=== PATIENT | female | born 1990 | race Caucasian/White ===

== ENCOUNTER 2019-07-21 22:21 | Emergency (ER) | payer MEDICAID, SELFPAY ==
[2019-07-21 22:22] VITALS: BP 147/74; PULSE 74; RESP 18; TEMP 36.4; O2SAT 97; BMI 29.1
--- NOTE | 2019-07-21 22:43 | ED.VISSUMM ---
- ER Visit Summary Date of Service: 07/21/19 Chief Complaint: Acute on chronic right ankle pain. History of Present Illness: The patient is a 28 F no significant past medical history. 1 year ago patient injured her right ankle. Was seen in urgent care and x-rays done at that time that were reportedly negative. For the last year she has had intermittent pain and intermittent swelling to her right ankle. She states that she is rolled it several times. Has never had any physical therapy. No ankle surgery. No fever, redness or calf pain. No walk on it. Just does intermittently has some swelling and some discomfort. Physical Examination: Well-appearing 28-year-old female no acute distress vital signs stable. She is afebrile. HEENT exam unremarkable. Lungs are clear. Heart regular rhythm no murmur. Abdomen soft nontender. Patient is moving all 4 extremities. Neurovascular intact. The right hip, knee and ankle are neurovascular intact. There is really minimal swelling to the right lateral ankle. She has full flexion-extension of the right ankle. Achilles tendon is intact. Normal DP pulse. The foot itself is completely nontender. No bony deformities. No redness. Able to wiggle her toes. Normal cap refill. Otherwise exam unremarkable. Test Results: Discussed with patient x-rays deferred at this time. Emergency Department Course and Treatment: I splinted the patient she had no new acute injury. Her best treatment option be follow-up with local podiatry and if necessary they get an MRI looking for tendon, ligament or cartilaginous injury that will show up on plain films. She is comfortable that plan. She will continue intermittent ice and elevation and anti-inflammatories. Treatment Plan: Ice, anti-inflammatories and rest. Follow-up with local director public policy Dr. Randy young. Disposition: Discharge Impression: Acute intermittent right ankle pain and swelling secondary to abnormally chronic ambulate intra-articular injury This note was generated with [employer] dictation software. It may contain incorrect words, spelling, and punctuation that were not noted in review of the chart prior to signing ED Disposition - Plan for ED Patient: Referrals: NOT,DEFINED [Primary Care Provider] -
--- NOTE | 2019-07-21 22:46 | DCINST.ED_ITS ---
ED Disposition - Plan for ED Patient: Disposition: Home or Assisted Living Referrals: Randy Louis DPM [STAFF PHYSICIAN] - 1-2 Weeks Additional Instructions: Ice and elevate your right ankle. Motrin for pain and swelling. Call and follow-up with a local hotel recreational facilities manager (foot and ankle specialist). They can further evaluate your ankle. Most likely this is not an acute fracture but a long-term ligament or tendon injury to your ankle when you injured it about a year ago. They may need to do advanced imaging such as an MRI to diagnose that.
[2019-07-21 22:53] VITALS: BP 138/74; PULSE 76; RESP 16; O2SAT 98
== END 2019-07-21 22:59 | disposition home or self-care (01) ==
LOC: ED 22:58
PROVIDERS: Emergency Provider Emergency Medicine
DX: M25.571 Pain in right ankle and joints of right foot (principal); G89.29 Other chronic pain; M79.89 Other specified soft tissue disorders
CPT/HCPCS: 99282

== ENCOUNTER → 2019-09-19 16:05 | Outpatient (CLI) | payer MEDICAID, SELFPAY ==
--- NOTE | 2019-09-19 16:20 | MRI_ITS ---
STUDY: MRI RIGHT ANKLE WITHOUT CONTRAST REASON FOR EXAM: Female, 28 years old. rt ankle ptt tear, lateral tendon tear, twisted ankle several times TECHNIQUE: Standardized fat and water weighted pulse sequences were obtained in all 3 orthogonal planes. COMPARISON: None. FINDINGS: Normal subcutis adipose space. Normal posterior tibialis tendon. Normal flexor digitorum longus tendon. Normal flexor hallucis longus tendon. Normal peroneus longus and brevis tendons. Normal tibialis anterior tendon. Normal extensor hallucis longus tendon. Normal extensor digitorum longus tendons. Normal Achilles tendon and teno-osseous insertion. No marrow edema or osteochondral defect. No visualized fracture. A small ankle joint effusion is present. There is mild thickening and intrinsic signal of the medial band of plantar fascia at the plantar insertion site on the calcaneus, without a tear, consistent with plantar fascial degeneration. Normal plantar calcaneal tubercles. A small plantar calcaneal spur is present directly above the degenerated plantar fascia. No demonstrated bursitis. Normal intrinsic muscles of the rearfoot. Normal distal tibiofibular syndesmotic ligamentous complex. Normal lateral ligamentous complex. Normal subtalar ligaments and sinus tarsi. Normal deltoid ligamentous complexes. Normal plantar calcaneonavicular (spring) ligament. Normal tibiotalar articulation. Normal talar dome. Normal subtalar articulations. Normal talonavicular articulation. Normal calcaneocuboid articulation. Normal navicular-cuneiform articulations. MRI/Lower Ext Joint Only (Routine) IMPRESSION: 1. Mild degeneration of the medial band of plantar fascia with a small overlying plantar calcaneal spur. 2. No osteochondral defect or marrow edema. 3. Small ankle joint effusion. Electronically Signed: Ramsey Starr MD at 18:39 EDT , Service support ,
== END ==
PROVIDERS: Referring Provider Podiatrist; Visit Provider Podiatrist
DX: S86.311A Strain of muscle(s) and tendon(s) of peroneal muscle group at lower leg level, right leg, initial encounter (principal); X50.1XXA Overexertion from prolonged static or awkward postures, initial encounter
CPT/HCPCS: 73721

== ENCOUNTER 2019-10-24 16:00 | Outpatient (RCR) | payer MEDICAID, SELFPAY ==
--- NOTE | 2019-10-09 17:02 | HP.PTEVAL ---
Patient's Visit Information ISHAN HORN is a 29 year old F referred to Physical Therapy by Dr. Randy Louis DPM with a diagnosis of R lateral ankle sprain. Date of Evaluation: 10/09/19 Physical Therapist: Jefferson Fernando, PT, ATC - Visit Plan Frequency: 2-3x /Week Duration: 4-6 Weeks Plan: R ankle stretching and strengthening, balance and proprio, PROM/Mobs, bike, and HEP - Subjective Pt reports she has a long Hx of R ankle sprains. Pt reports she had xrays and and MRI performed a couple weeks ago which revealed a possible tear in some on her tendons. Pt reports she was given a couple of options including PT first and if that isn't helpful, surgery. Pt reports prolonged ambulation results in a dull ache in R ankle. Pt reports she uses ice when she has pain. Pt reports occasional tingling and numbness in R ankle when painful. 1/10 pain at rest, 7/10 pain at worst (when she walks a lot) - Pain R ankle Pain Intensity (Out of 10): 1 Pain Intensity Range: 7 - Objective Neuro: B LE sensation is WNL to light touch. B patellar reflex= 2/3. Girth at joint line: L ankle 48 cm, R ankle 49.5 cm. Palpation: Mild swelling noteed. Pain throughout entire lateral ankle. No obvious deformity present at this time. ROM: L ankle DF= 15, PF= 65 degrees. R ankle DF= 2, PF= 55. MMT: R ankle grossly 4-/5 throughout while L ankle 5/5 throughout - Goals Goal 1:: Decrease R ankle pain x 50% to aid with sleep Goal Time Frame: 4-6 Weeks Goal 2:: Increase R ankle strength x 1 grade to aid with increasing yuliana for ambulation Goal Time Frame: 4-6 Weeks Goal 3:: Increase R ankle DF ROM x 10 degrees to aid with restoring a normalized gait pattern Goal Time Frame: 4-6 Weeks Goal 4:: I with HEP Goal Time Frame: 4-6 Weeks - Rehabilitation Potential Physical Therapy Diagnosis: R ankle pain, weakness, and limited ROM secondary to R lateral ankle sprain Rehabilitation Potential: Good - Anticipated Interventions Patient/Client Instruction: Educate patient on: Condition, Plan of Care For the Purpose of:: To improve self management Therapeutic Exercise to Include: Strength training, Balance training, Flexibilty training, Gait and locomotor training, Passive ROM, Active ROM, Dynamic Lumbar Stabilization For the Purpose of:: To decrease pain, To increase ROM, To improve muscle performance and motor function Cryotherapy (ice pack, ice massage): Yes For the Purpose of:: To decrease pain Thank you for the opportunity to evaluate your patient. For Medicare and Medicare HMO plans, please review the plan of care and approve it. It will need to be FAXED BACK to us at [phone] for Medicare purposes. For Medicare only, by signing this I certify the plan of care. Please let me know if there are questions or concerns regarding this plan of care. Physician Signature: Date:
--- NOTE | 2019-12-17 14:12 | HP.PT.NRP ---
ISHAN HORN was seen in my office for initial evaluation on 10/09/19. The following Plan of Care was established for this patient: Initial Frequency: 2-3x /Week Initial Duration: 4-6 Weeks Patient/Client Instruction: Educate patient on: Condition, Plan of Care For the Purpose of:: To improve self management Therapeutic Exercise to Include: Strength training, Balance training, Flexibilty training, Gait and locomotor training, Passive ROM, Active ROM, Dynamic Lumbar Stabilization For the Purpose of:: To decrease pain, To increase ROM, To improve muscle performance and motor function Cryotherapy (ice pack, ice massage): Yes For the Purpose of:: To decrease pain This patient was last seen in our office . Pertinent comments regarding their Physical therapy will appear below: Pt was treated for R ankle pain for 5 PT visits through the date of 10/24/19. Pt has not returned through todays date and is discontinued at this time. At this point I will be discontinuing this patient from physical therapy. I would be happy to see this patient again in the future if found appropriate by the physician. Thank you! Jefferson Fernando, PT, ATC
== END 2019-10-24 19:00 | disposition home or self-care (01) ==
LOC: PT 16:00
PROVIDERS: Referring Provider Podiatrist; Visit Provider Podiatrist
DX: M25.371 Other instability, right ankle (principal); M76.71 Peroneal tendinitis, right leg
CPT/HCPCS: 97110; 97140; 97161

== ENCOUNTER 2020-10-03 08:25 | Inpatient (IN) | payer MEDICAID, SELFPAY ==
[2020-10-03] VITALS (46 sets, daily range): BP systolic 109–140; BP diastolic 61–80; PULSE 73–104; RESP 16; TEMP 35.8–36.6; O2SAT 96–99; BMI 31.2
--- NOTE | 2020-10-03 08:59 | PCM.HP.OB ---
HPI - General General Date of Admission: 10/03/20 HPI Narrative ISHAN HORN, is a 30 F who presents for induction of labor. Maternal Data Information Final SUSHANT: 09/30/20 Gestational age: 40&3 PFSH [facility] Medical History (Updated 10/03/20 @ 12:[address] Cari Milton MD) Anxiety History of prior with IUGR Seasonal allergic rhinitis Home Medications famotidine [Pepcid] 20 mg PO BID 10/03/20 [History Last Taken 10/02/20 14:00 20 mg] fluticasone propionate [Flonase] 2 spray INTRANASAL DAILY 10/03/20 [History Last Taken 10/02/20 12:00 2 puffs] loratadine [Claritin] 10 mg PO DAILY 10/03/20 [History Last Taken 10/02/20 12:00 10 mg] [id number] [] 1 tab PO DAILY 10/03/20 [History Last Taken 10/01/20 12:00] Allergy/AdvReac Type Severity Reaction Status Date / Time Penicillins Allergy Hives Verified 10/03/20 08:44 pollen extracts Allergy Itching Verified 10/03/20 08:44 Surgical History (Updated 10/03/20 @ 09:35 by Allen Peterson) History of surgery Social History Smoking Status: Light Smoker (<10/day) History Elective abortions Hx Para 2 Spontaneous abortions Hx # Term Pregnancies Ectopic pregnancies Hx # Pregnancies Multiple births # of living children NST FHR Rate Baby A Baseline: 135 Variability:: Moderate Accelerations:: 15 x 15 Decelerations:: None Uterine Activity:: Q2-3 minutes Vital Signs Vital Signs Vital Signs: 10/03/20 08:44 Pulse Rate 98 Blood Pressure 130/72 H BP Systolic 130 BP Diastolic 72 Weight Weight: 187 lb 9.814 oz Body Mass Index (BMI) 31.2 Labs Labs Labs: Blood Type A POSITIVE Antibody Screen NEGATIVE Hct 37.7 % (37-47) Hgb 12.4 g/dL (12.0-15.0) Group B Strep DNA Negative (Negative-) Rhogam given: No See [facility] H&P Assessment & Plan (1) Elective induction of labor planned: COMMENT: 40&3 PLAN: Admit to L&D Induction - discussed R/B/A and patient wishes to proceed. Start pitocin and plan for AROM. COVID negative GBS negative EFW - less than 4500g, patient with adequate pelvis Pain - epidural as desired Routine care 2cm on admission and now she is 4/80/-2 & s/p AROM for clear amniotic fluid
[2020-10-03] MEDS: Lactated Ringers 1,000 ML 50 ML IV (09:00)
[2020-10-03 09:13] LABS: Absolute Lymphocyte Count 1.59 X10^3/uL (0.83-4.51); Absolute Neutrophil Count 7.3 X10^3/uL (2.0-7.7); Basophil# 0.02 X10^3/uL; Basophil% 0.2 % (0-1); Eosinophil# 0.16 X10^3/uL; Eosinophils% 1.7 % (0-5); Hematocrit 37.7 % (37-47); Hemoglobin 12.4 g/dL (12.0-15.0); Lymphocyte # 1.59 X10^3/ul (0.83-4.51); Lymphocyte % 16.5 % (19-41); Mean Corp Hgb Conc 32.9 g/dL (32-36); Mean Corpuscular Hgb 29.2 pg (27.0-32.0); Mean Corpuscular Volume 88.7 fL (81-99); Mean Platelet Vol. 11.3 fl (6.2-12.0); Monocyte# 0.52 X10^3/uL; Monocyte% 5.4 % (0-10); NRBC Flagged by Analyzer 0 % (0-5); Neutrophil # 7.31 X10^3/uL (2.7-7.7); Neutrophil % 75.9 % (47-70); Platelet Count 258 K/mm3 (150-450); RBC Distribution Width CV 12.5 % (11.6-14.6); RBC Distribution Width SD 40.4 fl (35.1-43.9); Red Blood Count 4.25 M/mm3 (4.2-5.4); White Blood Count 9.6 K/mm3 (4.4-11.0)
[2020-10-03] MEDS: Oxytocin 30 units/NS 500 ml 30 UNITS/500 ML IV.SOLN IV (09:16)
[2020-10-03] MEDS: Lactated Ringers 500 ML 999 ML IV (12:19)
[2020-10-03] MEDS: fentaNYL-bupivacaine (epidural) 100 ML BAG EPIDURAL (13:12)
[2020-10-03] MEDS: Oxytocin 30 units/NS 500 ml 30 UNITS/500 ML IV.SOLN 334 UNITS IV (15:12)
--- NOTE | 2020-10-03 15:54 | EX.PCM.OBRPT ---
Assessment & Plan (1) Elective induction of labor planned: COMMENT: 40&3 Maternal Data Information Final SUSHANT: 09/30/20 Gestational age: 40&3 Vaginal Delivery Maternal Presentation Maternal Presentation: Elective Induction Type of Induction: Pitocin Operative Information Date of Procedure: 10/03/20 Pre-Operative Diagnosis: Elective induction Post-Operative Diagnosis: Same Surgery / Procedure Performed: Spontaneous Vaginal Delivery Type of Anesthesia: Epidural Estimated Blood Loss: 300ml Findings Description of Procedure: Patient prepped & draped when C/C/+1. She pushed well to deliver the head. Tight nuchal cord clamped (x2) and cut. head gently guided to allow delivery of anterior and posterior shoulders. No excess traction placed on head. Body delivered easily. Placenta delivered with gentle traction and good uterine tone obtained. Presentation: VALARIE Amniotic Membrane Rupture Type: Artificial Amniotic Fluid Description: Clear Placental Delivery Description: Expressed Placenta Disposition: [facility] Specimen(s) Removed: Placenta Cord Vessel Description: 3 Vessels Cord Entanglement: Around neck x 1, tight Nuchal Cord Compression: With compression A Gender: Female (1 minute): 8 (5 minute): 9 Delayed Cord Clamping: No Post Vaginal Delivery Medications Given After Delivery: IV Pitocin Episiotomy Description: None Laceration: 1st degree (midline vaginal - repaired with 3-0 vicryl) Complication Complications: None
[2020-10-03] MEDS: 0.9% Saline Lock 10 ML Syringe IV (17:35)
[2020-10-03] MEDS: Ibuprofen 600 MG Tablet PO (18:01)
[2020-10-04 03:30] VITALS: BP 111/62; PULSE 86; RESP 16; TEMP 36.3; O2SAT 95
[2020-10-04 07:45] VITALS: BP 129/81; PULSE 88; RESP 16; TEMP 36.5; O2SAT 97
--- NOTE | 2020-10-04 09:48 | PCM.PN.OB ---
Subjective Subjective Denies complaints Objective Data Objective Data Vital Signs: Vital Signs Temp Pulse Resp BP Pulse Ox 97.7 F L 88 16 129/81 H 97 10/04/20 07:45 10/04/20 07:45 10/04/20 07:45 10/04/20 07:45 10/04/20 07:45 Oxygen Delivery Method Room Air Weight: 187 lb 9.814 oz Body Mass Index (BMI) 31.2 Intake & Output: Intake and Output for Last 24 Hours 10/02/20 10/03/20 10/04/20 23:59 23:59 23:59 Intake Total 1987.81 / 81 Output Total 1100 / 1100 Balance 888.81 / 888.81 Lab / Micro Data Result Diagrams: 10/03/20 09:00 Labs: Laboratory Results - last 24 hr 10/03/20 09:00: Blood Type A POSITIVE, Antibody Screen NEGATIVE Physical Exam Const alert, oriented x3 and no apparent distress HEENT normocephalic GI soft to palpation, non-tender and non-distended GI Narrative: fundus firm, mid & below umbilicus Extremity normal to inspection and no calf tenderness Assessment & Plan (1) Elective induction of labor planned: COMMENT: PPD#1 PLAN: D/c home per patient request Routine care
--- NOTE | 2020-10-04 10:14 | PCM.DC ---
Discharge Instructions Diet Discharge Diet: No restrictions Activity Discharge Activity: May Shower May resume sexual activity in: 6 weeks Weight Bearing Status: Weight bearing as tolerated Dressing / Incision Call your doctor if you observe: Fever of 101 or Higher, Coldness, Increased Pain, Change in Color, Inability to urinate, Inability to have a bowel movement, Using more than 1 pad per hour, Shortness of breath, Dizziness, Fainting spells, Chest pain, Increased palpitations (irregular heartbeat), Calf discomfort and Uncontrolled pain Remove Dressing in: 1 week Cleanse incision/area with: Soap & Water Follow Up Care Please Follow Up With: Cari Milton MD When: Follow up in 2 and 6 weeks for visits. Test Results: Test results from this visit will be discussed in further detail at your follow-up appointment, if applicable. Discharge Plan Admission Admit Date/Time: 10/03/20 08:25 Primary Reason for Your Visit: Vaginal delivery Attending Provider: Cari Milton Primary Care Provider: Care Physician,Afia Primary Discharge Orders/Prescriptions Prescriptions: No Action famotidine [Pepcid] 20 mg Tablet 20 mg PO BID RF: 0 1 mg Tablet 1 tab PO DAILY RF: 0 fluticasone propionate [Flonase] 50 mcg/actuation [place],Suspension 2 spray INTRANASAL DAILY RF: 0 loratadine [Claritin] 10 mg Tablet 10 mg PO DAILY RF: 0 Referrals / Follow Up: Care Physician,Afia Primary [Primary Care Provider] - Disposition Disposition (needs filled in before D/C Order can be placed): Home, Self Care
[2020-10-04] MEDS: Acetaminophen 500 MG Tablet 1000 MG PO (12:46)
[2020-10-04 12:48] VITALS: BP 128/83; PULSE 77; RESP 16; TEMP 36.6; O2SAT 98
--- NOTE | 2020-10-04 16:39 | NURSING ---
individual discharge instructions for care printed and given to patient as instructions would not print from discharge packet
== END 2020-10-04 16:30 | disposition home or self-care (01) | DRG 560 ==
PROVIDERS: Admitting Provider Obstetrics & Gynecology; Visit Provider Obstetrics & Gynecology
DX: O75.89 Other specified complications of labor and delivery (principal); O69.1XX0 Labor and delivery complicated by cord around neck, with compression, not applicable or unspecified; O99.334 Smoking (tobacco) complicating childbirth; F17.210 Nicotine dependence, cigarettes, uncomplicated; Z37.0 Single live birth; Z88.0 Allergy status to penicillin; Z3A.40 40 weeks gestation of pregnancy
CPT/HCPCS: 59025; 59050; 85025; 86850; 86900; 86901; 99218; J7120; A4216; G0378

== ENCOUNTER 2021-01-08 07:45 | Day surgery (SDC) | payer MEDICAID, SELFPAY ==
--- NOTE | 2021-01-06 13:47 | PCM.HP.BLA ---
History and Physical Date of Admission: 01/08/21 HPI: The patient is a 30 year old female presenting for?discussion regarding tubal ligation. ?Patient has 3 children does not desire future childbearing. ?Patient understands that this procedure is permanent and not reversible. ?Patient understands that if she desires?future fertility she would need to see reproductive specialist. ?Patient wishes to proceed. ? ? Original date of surgery was canceled due to +COVID status. ? ? ? Pre-operative visit. She is scheduled for?laparoscopic bilateral salpingectomy, for?desires sterilization on?01/08/21. ??Procedure discussed along with risks, benefits and complications. ?Other alternatives discussed for management. Consent form signed??Yes.? PAST MEDICAL HISTORY ? ? ? PAST MEDICAL HISTORY Diagnosis Date ? Antepartum anemia 06/15/2012 ? Anxiety disorder ? ? At risk for sexually transmitted disease due to partner with HIV ? ? Attention deficit disorder without mention of hyperactivity 11/07/2000 ? H/O seasonal allergies ? ? inverted nipple ? ? left ? Varicella without mention of complication 05/11/1993 ? PAST SURGICAL HISTORY ? PAST SURGICAL HISTORY Procedure Laterality Date ? MYRINGOTOMY ? ? ? REMOVAL ADENOIDS,PRIMARY,<12 Y/O ? CURRENT MEDICATIONS ? Current Outpatient Medications Medication Sig Dispense Refill ? fexofenadine (KYREE ALLERGY) 180 mg tablet Take 1 tablet by mouth once daily. ? ? ? fluticasone (FLONASE ALLERGY RELIEF) 50 mcg/actuation nasal spray Use 1 Dickens in each nostril once daily. ? ? ? acetaminophen (TYLENOL) 325 mg tablet Take 650 mg by mouth every 6 hours as needed. ? ? ? No current facility-administered medications for this visit. ? ? ALLERGIES:?Animal Dander, Environmental [Other], and Penicillins ? PERSONAL HISTORY:? SOCIAL HISTORY Social History ? Tobacco Use ? Smoking status: Former Smoker ? ? Types: Cigarettes ? Smokeless tobacco: Never Used ? Tobacco comment: Social smoker-1-2 times a month Vaping Use ? Vaping Use: Former Substance Use Topics ? Alcohol use: Not Currently ? ? Alcohol/week: 5.0 standard drinks ? ? Types: 5 Glasses of Wine (5oz) per week ? Drug use: Never ?? ? FAMILY HISTORY:? FAMILY HISTORY FAMILY HISTORY Problem Relation Age of Onset ? Diabetes Mother ? ? Diabetes Father ? ? No Known Problems Sister ? ? ADD/ADHD Brother ? ? No Known Problems Brother ? ? other (hanging accident) Brother ? ? No Known Problems Maternal Grandmother ? ? No Known Problems Maternal Grandfather ? ? No Known Problems Paternal Grandmother ? ? No Known Problems Paternal Grandfather ? ? No Known Problems Son ? ? Heart Other ?maternal &?paternal side ? other (hypoglycemia [Other]) Other ?maternal &?paternal side ? Cancer Other ?maternal &?paternal side ? Diabetes Other ?maternal &?paternal side ? other (glaucom [Other]) Other ?maternal &?paternal side ? other (depression [Other]) Other ?maternal &?paternal side ? No Known Problems Daughter ? ? ? REVIEW OF SYMPTOMS: negative except as noted above ? PHYSICAL EXAMINATION: ? VITALS:?BP 110/64, weight 173lb BMI 28.79 ? GENERAL:??The patient is well nourished, well hydrated in no acute distress. ?, The patient is oriented to time, place, and person. NECK:?full range of motion LUNGS: clear bilaterally to auscultation HEART: Regular rate and rhythm ? IMPRESSION:?Desires sterilization ? PLAN:???Laparoscopic bilateral salpingectomy ? Pt has been counseled on risks/benefits and alternatives of surgery including but not limited to anesthesia, bleeding, infection, injury to pelvic structures including bowel, bladder, ureters and vessels. ?Pt wishes to proceed with surgery at this time. ? covid testing reviewed Pre and post op instructions reviewed Title 19 previously signed in 09/2020 ? ? I have reviewed and updated past medical and surgical history, medications and allergies? Etta Manley MD ? Electronically signed by Etta Manley MD at
[2021-01-08 08:17] LABS: Internal QC Validated? YES +Cl - CLEAR BKGD
[2021-01-08 08:21] LABS: Pregnancy, Urine Negative Negative
[2021-01-08] MEDS: Lactated Ringers 1,000 ML 15 ML IV ×2 (08:30→10:45)
[2021-01-08 08:48] VITALS: BP 118/67; PULSE 79; RESP 16; TEMP 36.6; O2SAT 99; BMI 28.2
--- NOTE | 2021-01-08 09:32 | OP.PCM_ITS ---
Problems Associated Problem List Diagnoses (1) Request for sterilization: Report of Operation Date of Procedure: 01/08/21 Pre-Operative Diagnosis: desires sterilization Post-Operative Diagnosis: same Surgery/Procedure Performed:: laparoscopic bilaterally salpingectomy Description of Surgical Findings:: normal tubes and ovaries bilaterally, grossly normal pelvic anatomy Surgeon: Etta Cohen Type of Anesthesia: General and Local Special Medications: 0.5% marcaine Specimen's removed: bilateral fallopian tubes Drains: none Estimated Blood Loss (mL): <5cc Fluids Replaced: 400 Description of Procedure: After informed consent was obtained patient was taken to the operating room she was placed in supine position she was given anesthesia. She was then placed in the [facility] stirrups and she was prepped and draped in normal sterile fashion. Bladder was drained prior to the start of procedure. At this time attention was turned to the vaginal portion where weighted speculum placed at posterior fornix vagina single-tooth tenaculum was used to gently grasp the internal the cervix. uterus was gently sounded to approximately 8 cm. Uterine manipulator was placed without difficulty. Legs then placed in parallel with the abdomen the tenaculum and the weighted speculum were removed. 2 towel clamps were placed at level of umbilicus. Marcaine was injected infraumbilical and a small incision was made. The 5 mm trocar was placed under direct visualization. CO2 gas was used to insufflate the intra- abdominal cavity. Upon inspection no gross abnormalities appreciated- the uterus tubes and ovaries appeared to be normal. At this time then the LLQ and RLQ ports were placed First Marcaine was injected and small incision was made a knife and the 5 mm trocars were placed. At this time then tubes were traced back to the fimbriated ends. Enseal was used to coagulate and ligate along mesosalpinx` bilaterally until tubes removed completely. Good hemostasis was appreciated. At this time procedure was deemed complete successful. The gas was desufflated on from the intra-abdominal cavity. The trochars were removed. Skin was closed using 4-0 Monocryl in a subcutaneous fashion. Dermabond glue was placed. Instrument lap and needle counts were correct ?2. The uterine manipulator was removed. Vaginal sweep was performed it was negative. There were no complications anticipated normal postoperative course for this patient. Procedure Start Time: 09:52 Procedure Stop Time: 10:21 Complications none Admit VTE Documentation VTE Present on Admission: Yes VTE Mechan Device Prophylaxis: SCD's VTE Pharm Prophylaxis ordered?: No Reason prophylaxis not ordered:: Procedure Not Indicated
--- NOTE | 2021-01-08 09:50 | FALS_PTH ---
PATIENT: ISHAN HORN LOC: [facility] [place] U#:[id number] AGE/SX: 30/F ROOM: RE01/08/[address]: Dr. Etta Cohen, MDDOB: 1990 BED: DIS: 01/08/2021 SPEC #: [id number] RECD: 01/08/21 12:57 STATUS: JAYNE JENNIFER #: [id number] ELIZABETH: 01/08/21 09:[address]: Etta Cohen DEPT: SURGICAL PATHOLOGY RECD BY: Arabella Chin ENTERED: 01/08/21 13:32 SP TYPE: FALL TUBES OTHR DR: No Primary Care Phys Tissues: Fallopian tube Procedures: Surgery Specimen Level II HEADER OPERATION: Laparoscopic salpingectomy PRE-OP DIAGNOSIS: Sterilization TISSUE SUBMITTED: Bilateral fallopian tubes MICROSCOPIC DIAGNOSIS Bilateral fallopian tubes, salpingectomy: Bilateral fallopian tubes, no pathologic diagnosis. SJ:donna 01/09/2021 MICROSCOPIC DESCRIPTION Slides are reviewed. GROSS DESCRIPTION Received in fixative is one container labeled with the patient's name and designated bilateral fallopian tubes. The specimen consists of bilateral fallopian tubes including fimbrial ends. One of the fallopian tubes measure 6 cm in length and up to 1 cm in diameter. The second fallopian tube is received in two pieces. The proximal portion measures 4.5 cm in length and 0.7 cm in diameter and the distal portion including fimbrial end measures 2 x 1 x 1 cm. The fallopian tubes are not identified as right or left. Sections reveal unremarkable cut surfaces. [employer] sections are submitted in two cassettes as follows: 1 ? intact fallopian tube, 2 - fallopian tube received in two pieces. / GERMAIN:donna 01/08/21 TC:4 CPT: 07966 x2
[2021-01-08] MEDS: Bupivacaine Mpf 0.5% 30 ML VIAL (09:56)
--- NOTE | 2021-01-08 10:23 | DCINST_ITS ---
Discharge Instructions Procedure Other Diet Discharge Diet: No restrictions Activity May resume sexual activity in: 2 weeks Lifting Restrictions: 20-25 lbs Dressing / Incision Call your doctor if your incision/area has: Continuous Slow Oozing, Sudden Increased Bleeding, Increased Pain/ Swelling, Increased Redness, Foul Smelling Discharge and Swelling at the incision site Call your doctor if you observe: Fever of 101 or Higher, Inability to urinate, Inability to have a bowel movement, Using more than 1 pad per hour and Uncontrolled pain Additional Dressing/Incision Instructions:: You have skin glue over your incision sites, do not pick off. You may shower and let the soap and water run over the incision sites and dab dry. Follow Up Care Please Follow Up With: Etta Cohen MD When: 1-2 weeks post OP if you need an appointment please call [phone] Test Results: Test results from this visit will be discussed in further detail at your follow-up appointment, if applicable. Discharge Plan Admission Attending Provider: Etta Cohen Primary Care Provider: Care Physician,No Primary Discharge Orders/Prescriptions Prescriptions: No Action famotidine [Pepcid] 20 mg Tablet 20 mg PO BID RF: 0 fluticasone propionate [Flonase] 50 mcg/actuation [place],Suspension 2 spray INTRANASAL DAILY RF: 0 loratadine [Claritin] 10 mg Tablet 10 mg PO DAILY RF: 0 Referrals / Follow Up: Care Physician,No Primary [Primary Care Provider] - Disposition Disposition (needs filled in before D/C Order can be placed): Home, Self Care
[2021-01-08 10:35] VITALS: BP 114/72; BP 118/67; PULSE 85; RESP 16; TEMP 36.3; O2SAT 100
[2021-01-08 10:45] VITALS: BP 113/74; BP 118/67; PULSE 68; RESP 16; O2SAT 97
[2021-01-08 11:00] VITALS: BP 100/60; BP 118/67; PULSE 67; RESP 16; O2SAT 100
[2021-01-08 11:15] VITALS: BP 106/58; BP 118/67; PULSE 61; RESP 16; TEMP 35.9; O2SAT 100
[2021-01-08] MEDS: HYDROcodone Bitartrate/Apap 5/325 Tablet PO (11:47)
[2021-01-08 12:31] VITALS: BP 106/64; BP 118/67; PULSE 74; RESP 16; TEMP 36.7; O2SAT 98
== END 2021-01-08 12:35 | disposition home or self-care (01) ==
LOC: SDC 07:48 → AC 07:56
PROVIDERS: Visit Provider Obstetrics & Gynecology
PROC: (CPT 58661; principal; 2021-01-08 09:35)
DX: Z30.2 Encounter for sterilization (principal); Z87.891 Personal history of nicotine dependence; Z88.0 Allergy status to penicillin; Z83.3 Family history of diabetes mellitus; Z87.59 Personal history of other complications of pregnancy, childbirth and the puerperium
CPT/HCPCS: 00840; 58661; 81025; 88302; J7120; C1760; J2405

== ENCOUNTER 2021-11-05 10:23 | Emergency (ER) | payer MEDICAID, SELFPAY ==
[2021-11-05 10:23] VITALS: BP 118/90; PULSE 85; RESP 16; TEMP 36.7; O2SAT 97; BMI 29.1
[2021-11-05 10:28] VITALS: BP 118/90; PULSE 85; RESP 16; TEMP 36.7; O2SAT 99
--- NOTE | 2021-11-05 10:40 | ED.VIS.DENTA ---
HPI History of Present Illness Chief Complaint: Dental Informant: patient Onset/Context/Timing Onset: Weeks (1) Context: Gradual Onset Timing: Continuous Quality: Pressure, sharp, burning, aching Location: Right upper premolars Worsened by: Nothing Relieved by: Topicals Associated Symptoms Assocated Symptom - Dental: cold sensitivity and hot sensitivity; Negative for fever, jaw swelling or face swelling Narrative Narrative: Patient presents with right upper dental pain that has been getting worse over the past week. Patient states it is gradually getting worse. Patient describes her pain as sharp, burning, and pressure. Patient states it is over the right upper premolar area. Patient states that Orajel helps a little bit. Patient states nothing makes it worse. Patient denies any fevers or chills. Patient denies any jaw or facial swelling. Patient does admit to hot and cold sensitivity. Patient denies any difficulty breathing or difficulty swallowing. Patient states she has seen her dentist for this. Patient states they did x-rays and told her she has an infection/abscess near the nerve root. Patient states that she was not prescribed antibiotics however. Patient states that her dentist is waiting for her insurance to determine the appropriate treatment. [facility] Medical History (Updated 11/05/21 @ 10:[address] Caden Narayanan, DO) Anxiety Elective induction of labor planned History of prior with IUGR Seasonal allergic rhinitis Vaginal delivery Wears glasses Home Medications famotidine 20 mg tablet (Pepcid) 20 mg PO BID heartburn 10/03/20 [History Last Taken 10/02/20 14:00 20 mg] fluticasone propionate 50 mcg/actuation nasal spray,suspension 2 spray intranasal DAILY allergies 10/03/20 [History Last Taken 10/02/20 12:00 2 puffs] loratadine 10 mg tablet (Claritin) 10 mg PO DAILY allergies 10/03/20 [History Last Taken 10/02/20 12:00 10 mg] clindamycin HCl 300 mg capsule (Cleocin HCl) 300 mg PO Q6H #40 CAPSULES 11/05/21 [Rx Last Taken Unknown] Allergy/AdvReac Type Severity Reaction Status Date / Time animal dander Allergy Itching Verified 11/05/21 10:23 Penicillins Allergy Hives Verified 11/05/21 10:23 pollen extracts Allergy Itching Verified 11/05/21 10:23 Surgical History (Updated 11/05/21 @ 10:[address] Caden Narayanan DO) History of surgery Hx of tubal ligation Social History Smoking Status: Never smoker ROS ROS ED Constitutional Constitutional ED: Denies chills or fever(s) Eyes Eyes: Denies blurry vision or change in vision ENT ENT ED: Denies rhinorrhea or sore throat Cardiovascular Cardiovascular: Denies chest pain or palpitations Respiratory/Chest Respiratory/Chest: Denies cough or dyspnea Gastrointestinal Gastrointestinal: Denies nausea or vomiting Genitourinary Genitourinary ED: Denies dysuria or hematuria Musculoskeletal Musculoskeletal: Denies back pain or neck pain Integumentary Denies abscess or rash Neurologic Neurologic: Reports headache(s); Denies weakness Allergic/Immunologic Allergic/Immunologic ED: Denies mouth swelling or urticaria EXAM Physical Exam Const Vital Signs: 11/05/21 10:23 11/05/21 10:28 Temperature 98.0 F 98.0 F Temperature Source Temporal Oral Pulse Rate 85 85 Respiratory Rate 16 16 Blood Pressure 118/90 H 118/90 H Blood Pressure Mean 99 99 Pulse Ox 97 99 Oxygen Delivery Method Room Air Room Air Positive well nourished and well developed General Appearance ED: well developed and NAD HEENT Reports moist mucous membranes HEENT Narrative: There are multiple dental caries noted. There is tenderness over the right upper first premolar. There is some mild gingival edema around this tooth. There is no discharge or drainage. There is no fluctuance. Mouth ED: Yes oral and palatal mucosa normal, Yes lips normal and Yes tongue normal Mouth: oral and palatal mucosa normal, lips normal and tongue normal Throat: posterior oropharynx normal Neck no lymphadenopathy, supple and no JVD General: normal visual inspection; Negative for anterior neck swelling, tenderness or submandibular swelling Neuro oriented x3, CN's II-XII intact bilaterally and no sensory deficits noted Sensorium / Orientation: alert Motor Exam: strength 5/5 throughout Psych mental status grossly normal Skin no rashes or lesions noted MDM MDM MDM Narrative Medical decision making narrative: Patient was given a dose of clindamycin here due to to her penicillin allergy. Patient was given a prescription for clindamycin. Patient was instructed to continue Orajel and Tylenol as needed for pain. Patient was instructed to follow-up with her dentist in 3 to 5 days. Patient understood and was agreeable with the plan. All questions were answered. Discharge Plan Triage Chief Complaint: Dental ED Provider: Caden Narayanan Dx/Rx/DC Orders Clinical Impression: Infected dental caries Instructions: ED Dental Pain, ED Dental Abscess Prescriptions: New clindamycin HCl [Cleocin HCl] 300 mg capsule 300 mg PO Q6H Qty: 40 0RF No Action famotidine [Pepcid] 20 mg Tablet 20 mg PO BID fluticasone propionate [Flonase] 50 mcg/actuation [place],Suspension 2 spray INTRANASAL DAILY loratadine [Claritin] 10 mg Tablet 10 mg PO DAILY Primary Care Provider: Care Physician,No Primary Referrals: Care Physician,No Primary [Primary Care Provider] - Dentist,Your [STAFF PHYSICIAN] - 3-5 Days Disposition Disposition: Home, Self Care
[2021-11-05] MEDS: Clindamycin HCl 150 MG Capsule 300 MG PO (11:22)
== END 2021-11-05 11:30 | disposition home or self-care (01) ==
LOC: ED 10:53
PROVIDERS: Emergency Provider Emergency Medicine; Visit Provider Emergency Medicine
DX: K02.9 Dental caries, unspecified (principal)
CPT/HCPCS: 99283

== ENCOUNTER 2023-04-07 09:45 | Day surgery (SDC) | payer MEDICAID, SELFPAY ==
--- NOTE | 2023-03-24 14:24 | HP.PCM_ITS ---
History and Physical Date of Admission: 04/07/23 HPI: The patient is a 32 year old female presenting for pre-operative visit. She is scheduled for LEEP of the cervix, for high grade cervical dysplasia on 04/07/23. Procedure discussed along with risks, benefits and complications. Other alternatives discussed for management. Consent form signed? Yes. ? ? PAST MEDICAL HISTORY PAST MEDICAL HISTORY Diagnosis Date ? Antepartum anemia 06/15/2012 ? Anxiety disorder ? ? At risk for sexually transmitted disease due to partner with HIV ? ? Attention deficit disorder without mention of hyperactivity 11/07/2000 ? Cervical high risk human papillomavirus (HPV) DNA test positive 08/25/2022 ? H/O seasonal allergies ? ? HGSIL (high grade squamous intraepithelial lesion) on Pap smear of cervix 08/25/2022 ? inverted nipple ? ? left ? Papanicolaou smear of cervix with high grade squamous intraepithelial lesion (HGSIL) 09/01/2022 ? Varicella without mention of complication 05/11/1993 ? ? PAST SURGICAL HISTORY PAST SURGICAL HISTORY Procedure Laterality Date ? ADENOIDECTOMY PRIMARY <AGE 13 ? ? ? MYRINGOTOMY ? ? ? TUBAL LIGATION Bilateral 01/08/2021 ? salpingectomy - [facility] ? VAGINOSCOPY ? 10/20/2022 ? HGSIL ? ? ? CURRENT MEDICATIONS Current Outpatient Medications Medication Sig Dispense Refill ? fexofenadine (KYREE ALLERGY) 180 mg tablet Take 1 tablet by mouth once daily. ? ? ? acetaminophen (TYLENOL) 325 mg tablet Take 650 mg by mouth every 6 hours as needed. ? ? ? naproxen (NAPROSYN) 375 mg tablet Take 1 tablet by mouth three times a day as needed (pain). (Patient not taking: Reported on 03/23/2023) 60 tablet 1 ? No current facility-administered medications for this visit. ? ? ALLERGIES: Penicillins ? PERSONAL HISTORY: SOCIAL HISTORY Social History ? Tobacco Use ? Smoking status: Some Days ? ? Types: Cigarettes ? Smokeless tobacco: Never ? Tobacco comments: ? ? Social smoker-1-2 times a month Vaping Use ? Vaping Use: Former Substance Use Topics ? Alcohol use: Yes ? ? Alcohol/week: 5.0 standard drinks of alcohol ? ? Types: 5 Glasses of Wine (5oz) per week ? ? Comment: occasional ? Drug use: Never ? FAMILY HISTORY: FAMILY HISTORY FAMILY HISTORY Problem Relation Age of Onset ? Diabetes Mother ? ? Diabetes Father ? ? No Known Problems Sister ? ? ADD/ADHD Brother ? ? No Known Problems Brother ? ? other (hanging accident) Brother ? ? No Known Problems Maternal Grandmother ? ? No Known Problems Maternal Grandfather ? ? No Known Problems Paternal Grandmother ? ? No Known Problems Paternal Grandfather ? ? No Known Problems Daughter ? ? No Known Problems Son ? ? Heart Other ? ? maternal & paternal side ? other (hypoglycemia [Other]) Other ? ? maternal & paternal side ? Cancer Other ? ? maternal & paternal side ? Diabetes Other ? ? maternal & paternal side ? other ([place] [Other]) Other ? ? maternal & paternal side ? other (depression [Other]) Other ? ? maternal & paternal side ? ? REVIEW OF SYMPTOMS: GENERAL: denies fevers or chills ENDOCRINOLOGY: has not been on steroids Cardiology : denies palpitations or chest pain Respiratory: denies SOB or cough Hematology: denies history of prolonged bleeding or easy bruising or VTE Allergy: Denies history of personal or family history of allergy to anesthesia ? PHYSICAL EXAMINATION: ? VITALS: Blood pressure 112/82, weight 187 lb (84.8 kg), last menstrual period 03/01/2023. ? GENERAL: The patient is well nourished, well hydrated in no acute distress. , The patient is oriented to time, place, and person. NECK: Supple. No lynphadenopathy, normal thyroid, no thyromegaly. LUNGS: Clear to auscultation bilaterally. no wheezes, rhonchi or rales HEART: Regular rate and rhythm, Normal heart sounds, and No murmurs or gallops ? IMPRESSION: high grade cervical dysplaisa ? PLAN: r/b/a to leep in or reviewed, desires to proceed ? I have reviewed and updated past medical and surgical history, medications and allergies Assessment & Plan Assessment/Plan (1) High grade squamous intraepithelial cervical dysplasia: (2) Anxiety:
--- NOTE | 2023-04-06 11:10 | CER_PTH ---
PATHOLOGY RESULTS PATIENT: ISHAN HORN LOC: [facility] [place] U#:[id number] AGE/SX: 32/F ROOM: RE04/07/[address]: Dr. Susan Vo MD : 1990 BED: DIS: 04/07/2023 SPEC #: [id number] RECD: 04/07/23 12:38 STATUS: JAYNE RODRIGUEZ #: [id number] ELIZABETH: 04/06/23 11:[address]: Susan Vo DEPT: SURGICAL PATHOLOGY RECD BY: Leila Cardona ENTERED: 04/07/23 12:40 SP TYPE: CERV OTHR DR: No Primary Care Phys Tissues: UTERINE CERVIX LEEP UTERINE CERVIX LEEP Endocervical Procedures: Surgery Specimen Level IV Surgery Specimen Level V HEADER OPERATION: LEEP cone PRE-OP DIAGNOSIS: High-grade squamous intraepithelial cervical dysplasia TISSUE SUBMITTED: A - Anterior cervix, B - Posterior cervix, C - Endocervical curettings MICROSCOPIC DIAGNOSIS A. Anterior cervix, LEEP conization: Chronic inflammation. Negative for dysplasia. B. Posterior cervix, LEEP conization: Acute and chronic inflammation and squamous metaplasia. Negative for dysplasia. C. Endocervical curettings: Scant fragments of benign endocervical mucosa. Proliferative endometrium. Focal mild chronic endometritis. Negative for dysplasia. See comment. SJ:rg 04/08/2023 COMMENT C. The specimen predominantly consists of endometrial tissue. Clinical correlation and appropriate follow up are necessary. Case has been reviewed in consultation with Dr. Juarez who concurs with the above diagnosis. IDC:AM MICROSCOPIC DESCRIPTION Slides are reviewed. GROSS DESCRIPTION A - Received in fixative is one container labeled with the patient's name and designated anterior cervix. The specimen consists of a piece of [place]erguson, indurated tissue consistent with LEEP conization measuring 2.0 x 2.0 x 1.0 cm. No mucosal lesion is identified. Non-mucosal surface is inked black. The specimen is serially sectioned and submitted entirely in four cassettes. B - Received in fixative is one container labeled with the patient's name and designated posterior cervix. The specimen consists of a piece of [place], indurated tissue consistent with LEEP conization measuring 2.5 x 1.0 x 0.3 cm. No mucosal lesion is identified. Non-mucosal surface is inked black. The specimen is serially sectioned and submitted entirely in three cassettes. C - Received in fixative is one container labeled with the patient's name and designated endocervical curettings. The specimen consists of multiple irregular fragments of light ferguson soft tissue that in aggregate measure 2.0 x 0.5 x 0.1 cm. The specimen is totally submitted in one cassette. / GERMAIN:donna 04/07/2023 TC:3 CPT: 25641, 88757 x2
[2023-04-07] VITALS (8 sets, daily range): BP systolic 100–119; BP diastolic 64–73; PULSE 57–70; RESP 16–18; TEMP 36.2–36.6; O2SAT 98–100; BMI 30.7
[2023-04-07] MEDS: Acetaminophen 500 MG Tablet 1000 MG PO (10:24)
[2023-04-07] MEDS: Lactated Ringers 1,000 ML 15 ML IV (10:25)
--- OUTSIDE RECORDS SUMMARY | 2023-04-07 11:19 | XMS RPT_ITS | CCD ---
Author Name Unknown Address [address] [facility] [address] [place] [address] Organization [facility] Care Team Providers Care Rental Car Deliverer Name Role Phone Unavailable Primary Care Provider UnavailLINDSAY Altamirano Referring Unavailable VENANCIO MILLER Attending Unavailable LINDSAY SIFUENTES Attending Unavailable CHELSIE JACOME Referring Unavailable VENANCIO MILLER Attending Unavailable VENANCIO MILLER Attending Unavailable VENANCIO MILLER Attending Unavailable Allergies Allergy Classification Reported Allergen(s) Allergy Type Date of Onset Reaction(s) Facility (10 sources) Penicillins; Translations: [PENICILLINS] Drug Allergy 4 Other: See Comments [facility] Work Phone: (7 sources) Animal Dander; Translations: [ANIMAL DANDER] Drug Allergy 3 Other: See Comments [facility] Work Phone: (6 sources) environmental [Other] Propensity to adverse reactions 8 Hives [facility] Work Phone: (1 source) OTHER; Translations: [OTHER] Propensity to adverse reactions (disorder) 8 [facility] Repository Medications Completed/Discontinued Medications Medication Drug Class(es) Dates Sig (Normalized) Sig (Original) acetaminophen 325 mg oral tablet (9 sources) take 2 tablets by mouth every six hours as needed acetaminophen (TYLENOL) 325 mg tablet Take 650 mg by mouth every 6 hours as needed. 0 Active Problems Active Problems Problem Classification Problem Date Documented Date Episodic/Chronic Abdominal pain (1 source) Pain in pelvis; Translations: [Pelvic and perineal pain] 08-25-2022 Episodic Attention-deficit, conduct, and disruptive behavior disorders (9 sources) Attention-deficit hyperactivity disorder, unspecified type; Translations: [Attention deficit disorder with hyperactivity] Onset: 11-13-2004 11-13-2004 Chronic Immunizations and screening for infectious disease (3 sources) Patient encounter status; Translations: [Encounter for screening for human papillomavirus (HPV)] 08-25-2022 Episodic Other screening for suspected conditions (not mental disorders or infectious disease) (1 source) Cancer cervix screening status; Translations: [Encounter for screening for malignant neoplasm of cervix] 08-25-2022 Episodic Other upper respiratory infections (1 source) Acute upper respiratory infection; Translations: [Acute upper respiratory infection, unspecified] 10-13-2022 Episodic Residual codes; unclassified (1 source) Pain; Translations: [Pain, unspecified] 03-30-2023 Episodic Residual codes; unclassified (1 source) Pain, unspecified; Translations: [Pain] Onset: 03-30-2023 Episodic Past or Other Problems Problem Classification Problem Date Documented Date Episodic/Chronic Cancer of cervix (13 sources) High grade squamous intraepithelial lesion on cervical Papanicolaou smear; Translations: [High grade squamous intraepithelial lesion on cytologic smear of cervix (HGSIL)] Onset: 09-01-2022 09-01-2022 Episodic Contraceptive and procreative management (3 sources) Sterilization requested; Translations: [Encounter for sterilization] Onset: 09-23-2020 09-23-2020 Episodic Residual codes; unclassified (9 sources) At risk of sexually transmitted infection ; Translations: [Other specified personal risk factors, not elsewhere classified] Onset: 06-12-2020 06-17-2020 Episodic Sexually transmitted infections (not HIV or hepatitis) (9 sources) Human papillomavirus deoxyribonucleic acid test positive, high risk on cervical specimen; Translations: [Cervical high risk human papillomavirus (HPV) DNA test positive] Onset: 09-01-2022 09-01-2022 Episodic Results Test Name Value Interpretation Reference Range Facil ity Vital Signs Date Time Vital Sign Value Performing Clinician Jessika rivera 03-30-2023 11:12-0500 Body temperature 98.4 [degF] Chelsie Jacome APRN.CNP Work Phone: [facility] 03-30-2023 11:12-0500 Body weight 87.82 kg Chelsie Jacome APRN.CNP Work Phone: [facility] 03-30-2023 11:12-0500 Diastolic blood pressure 80 mm[Hg] Chelsie Jacome APRN.CORRECTIONAL SUBSTANCE ABUSE COUNSELOR Work Phone: [facility] 03-30-2023 11:12-0500 Heart rate 77 /min Chelsie Jacome APRN.CORRECTIONAL SUBSTANCE ABUSE COUNSELOR Work Phone: [facility] 03-30-2023 11:12-0500 Respiratory rate 18 /min Chelsie Jacome APRN.CORRECTIONAL SUBSTANCE ABUSE COUNSELOR Work Phone: [facility] 03-30-2023 11:12-0500 SaO2% (BldA) [Mass fraction] 98 % Chelsie Jacome APRN.CORRECTIONAL SUBSTANCE ABUSE COUNSELOR Work Phone: [facility] 03-30-2023 11:12-0500 Systolic blood pressure 122 mm[Hg] Chelsie Jacome APRN.CORRECTIONAL SUBSTANCE ABUSE COUNSELOR Work Phone: [facility] 03-23-2023 11:08-0500 Body weight 84.82 kg Venancio Miller MD Work Phone: [facility] 03-23-2023 11:08-0500 Diastolic blood pressure 82 mm[Hg] Venancio Miller MD Work Phone: [facility] 03-23-2023 11:08-0500 Systolic blood pressure 112 mm[Hg] Venancio Miller MD Work Phone: [facility] 01-10-2023 09:07-0500 Body height 165.1 cm Venancio Miller MD Work Phone: [facility] 01-10-2023 09:07-0500 Body weight 82.56 kg Venancio Miller MD Work Phone: [facility] 01-10-2023 09:07-0500 Diastolic blood pressure 78 mm[Hg] Venancio Miller MD Work Phone: [facility] 01-10-2023 09:07-0500 Heart rate 96 /min Venancio Miller MD Work Phone: [facility] 01-10-2023 09:07-0500 Respiratory rate 16 /min Venancio Miller MD Work Phone: [facility] 01-10-2023 09:07-0500 SaO2% (BldA) [Mass fraction] 98 % Venancio Miller MD Work Phone: [facility] 01-10-2023 09:07-0500 Systolic blood pressure 122 mm[Hg] Venancio Miller MD Work Phone: [facility] 11-24-2022 15:11-0400 Body weight 84.82 kg Venancio Miller MD Work Phone: [facility] 11-24-2022 15:11-0400 Diastolic blood pressure 82 mm[Hg] Venancio Miller MD Work Phone: [facility] 11-24-2022 15:11-0400 Systolic blood pressure 126 mm[Hg] Venancio Miller MD Work Phone: [facility] 10-20-2022 15:10-0400 Body weight 81.65 kg Venancio Miller MD Work Phone: [facility] 10-20-2022 15:10-0400 Diastolic blood pressure 72 mm[Hg] Venancio Miller MD Work Phone: [facility] 10-20-2022 15:10-0400 Systolic blood pressure 110 mm[Hg] Venancio Miller MD Work Phone: [facility] 10-13-2022 18:57-0400 Body temperature 100 [degF] Ashley Canales TIE MAKER.CORRECTIONAL SUBSTANCE ABUSE COUNSELOR Work Phone: [facility] 10-13-2022 18:57-0400 Body weight 83.28 kg Ashley Canales TIE MAKER.CORRECTIONAL SUBSTANCE ABUSE COUNSELOR Work Phone: [facility] 10-13-2022 18:57-0400 Diastolic blood pressure 82 mm[Hg] Ashley Canales TIE MAKER.CORRECTIONAL SUBSTANCE ABUSE COUNSELOR Work Phone: [facility] 10-13-2022 18:57-0400 Heart rate 103 /min Ashley Canales TIE MAKER.CORRECTIONAL SUBSTANCE ABUSE COUNSELOR Work Phone: [facility] 10-13-2022 18:57-0400 Respiratory rate 21 /min Ashley Canales TIE MAKER.CORRECTIONAL SUBSTANCE ABUSE COUNSELOR Work Phone: [facility] 10-13-2022 18:57-0400 SaO2% (BldA) [Mass fraction] 99 % Ashley Canales APRN.CORRECTIONAL SUBSTANCE ABUSE COUNSELOR Work Phone: [facility] 10-13-2022 18:57-0400 Systolic blood pressure 114 mm[Hg] Ashley Canales APRN.CORRECTIONAL SUBSTANCE ABUSE COUNSELOR Work Phone: [facility] 08-25-2022 14:01-0400 Body height 165.1 cm Lindsay Sifuentes APRN.CORRECTIONAL SUBSTANCE ABUSE COUNSELOR Work Phone: [facility] 08-25-2022 14:01-0400 Body weight 86 kg Lindsay Sifuentes APRN.CORRECTIONAL SUBSTANCE ABUSE COUNSELOR Work Phone: [facility] 08-25-2022 14:01-0400 Diastolic blood pressure 78 mm[Hg] Lindsay Sifuentes APRN.CORRECTIONAL SUBSTANCE ABUSE COUNSELOR Work Phone: [facility] 08-25-2022 14:01-0400 Systolic blood pressure 120 mm[Hg] Lindsay Sifuentes APRN.CORRECTIONAL SUBSTANCE ABUSE COUNSELOR Work Phone: [facility] Encounters Encounter Date Encounter Type Care Provider Facility Start: 03-30-2023 End: 03-30-2023 ambulatory CHELSIE AYAZ Facility:[facility] Start: 03-30-2023 End: 03-30-2023 Patient encounter procedure Chelsie Jacome APRN.CORRECTIONAL SUBSTANCE ABUSE COUNSELOR Work Phone: [facility] Plan of Treatment Date Care Activity Detail Author Start: 07-22-2030 Urine microalbumin profile [facility] Start: 08-26-2027 HPV TESTING HPV TESTING [facility] Start: 08-26-2027 PAP TESTING PAP TESTING [facility] Start: 08-26-2027 Screening for malignant neoplasm of cervix [facility] Start: 06-17-2025 PAP TESTING PAP TESTING [facility] Start: 02-25-2023 HPV Vaccine (3 - 3-dose SCDM series) HPV Vaccine (3 - 3-dose SCDM series) [facility] Start: 02-21-2023 9vhpv vacc 2/3 dose sched im use HPV VACCINE, 9-VALENT (GARDASIL 9) Immunization/Injection Routine Need for prophylactic vaccination/inoculation against viral disease Expected: 02/21/2023 (Approximate) [facility] Work Phone: Immunizations Immunization Date Immunization Notes Care Provider Chad coyle 10-26-2022 Human Papillomavirus 9-valent vaccine Venancio Miller MD Work Phone: [facility] 08-25-2022 Human Papillomavirus 9-valent vaccine Lindsay Sifuentes APRN.CORRECTIONAL SUBSTANCE ABUSE COUNSELOR Work Phone: [facility] 07-22-2020 tetanus toxoid, redu marii diphtheria toxoid, and acellular pertussis vaccine, adsorbed Lindsay Sifuentes APRN.CORRECTIONAL SUBSTANCE ABUSE COUNSELOR Work Phone: [facility] 07-11-2012 tetanus toxoid, redu marii diphtheria toxoid, and acellular pertussis vaccine, adsorbed Lindsay Sifuentes APRN.CORRECTIONAL SUBSTANCE ABUSE COUNSELOR Work Phone: [facility] 05-08-2007 hepatitis B vaccine, pediatric or pediatric/adolescent dosage Lindsay Sifuentes APRN.CORRECTIONAL SUBSTANCE ABUSE COUNSELOR Work Phone: [facility] Work Phone: 05-08-2007 Meningococcal, MCV4, unspecified conjugate formulation(groups A, C, Y and W-135) Lindsay Sifuentes APRN.CORRECTIONAL SUBSTANCE ABUSE COUNSELOR Work Phone: [facility] Work Phone: 02-07-2005 hepatitis B vaccine, pediatric or pediatric/adolescent dosage Lindsay Sifuentes APRN.CORRECTIONAL SUBSTANCE ABUSE COUNSELOR Work Phone: [facility] Work Phone: 10-09-2004 hepatitis B vaccine, pediatric or pediatric/adolescent dosage Lindsay Sifuentes APRN.CORRECTIONAL SUBSTANCE ABUSE COUNSELOR Work Phone: [facility] 10-09-2004 measles, mumps and rubella virus vaccine Lindsay Sifuentes APRN.CORRECTIONAL SUBSTANCE ABUSE COUNSELOR Work Phone: [facility] 10-09-2004 poliovirus vaccine, inactivated Lindsay Sifuentes APRN.CORRECTIONAL SUBSTANCE ABUSE COUNSELOR Work Phone: [facility] Work Phone: 12-19-2003 TD(adult) unspecifie d formulation Lindsay Sifuentes APRN.CORRECTIONAL SUBSTANCE ABUSE COUNSELOR Work Phone: [facility] Work Phone: 12-19-2003 tetanus and diphther ia toxoids, adsorbed, preservative free, for adult use (2 Lf of tetanus toxoid and 2 Lf of diphtheria toxoid) Lindsay Sifuentes APRN.[facility] Work Phone: [facility] Work Phone: 05-11-1993 chicken pox (disease) Lindsay sanchez APRN.CORRECTIONAL SUBSTANCE ABUSE COUNSELOR Work Phone: [facility] 05-11-1993 varicella virus vaccine Lindsay Sifuentes APRN.[facility] Work Phone: [facility] 04-09-1993 diphtheria, tetanus toxoids and acellular pertussis vaccine Lindsay Sifuentes APRN.[facility] Work Phone: [facility] Work Phone: 04-09-1993 trivalent poliovirus vaccine, live, oral Lindsay Sifuentes APRN.[facility] Work Phone: [facility] Work Phone: 12-25-1992 haemophilus influenz ae type b vaccine, HbOC conjugate Lindsay Sifuentes APRN.[facility] Work Phone: [facility] Work Phone: 12-25-1992 measles, mumps and rubella virus vaccine Lindsay Sifuentes APRN.[facility] Work Phone: [facility] Work Phone: 04-24-1992 diphtheria, tetanus toxoids and pertussis vaccine Lindsay Sifuentes APRN.CORRECTIONAL SUBSTANCE ABUSE COUNSELOR Work Phone: [facility] Work Phone: 04-24-1992 haemophilus influenz ae type b vaccine, HbOC conjugate Lindsay Sifuentes APRN.CORRECTIONAL SUBSTANCE ABUSE COUNSELOR Work Phone: [facility] Work Phone: 03-06-1992 diphtheria, tetanus toxoids and pertussis vaccine Lindsay Sifuentes APRN.CORRECTIONAL SUBSTANCE ABUSE COUNSELOR Work Phone: [facility] Work Phone: 03-06-1992 haemophilus influenz ae type b vaccine, HbOC conjugate Lindsay Sifuentes TIE MAKER.CORRECTIONAL SUBSTANCE ABUSE COUNSELOR Work Phone: [facility] Work Phone: 03-06-1992 trivalent poliovirus vaccine, live, oral Lindsay Sifuentes TIE MAKER.CORRECTIONAL SUBSTANCE ABUSE COUNSELOR Work Phone: [facility] Work Phone: 1991 diphtheria, tetanus toxoids and pertussis vaccine Lindsay Sifuentes TIE MAKER.CORRECTIONAL SUBSTANCE ABUSE COUNSELOR Work Phone: [facility] Work Phone: 1991 haemophilus influenz ae type b vaccine, HbOC conjugate Lindsay Sifuentes TIE MAKER.CORRECTIONAL SUBSTANCE ABUSE COUNSELOR Work Phone: [facility] Work Phone: 1991 trivalent poliovirus vaccine, live, oral Lindsay Sifuentes TIE MAKER.CORRECTIONAL SUBSTANCE ABUSE COUNSELOR Work Phone: [facility] Work Phone: Payers Date Payer Category Payer Medicaid [facility] MEDIC AID [facility] MEDICAID [id number] 2022-Present [phone] [address] [place] [address] Medicaid [id number] 2022 Medicaid [id number] Social History Date Type Detail Facility Start: [facility] smoker [facility] History of tobacco use Cigarette Smoker [facility] Start: 08-25-2022 Tobacco use and exposure Smoke less tobacco non-user [facility] Start: 08-25-2022 End: 03-30-2023 Alcohol intake Current drinker of alcohol (finding) [facility] Start: 08-25-2022 End: 03-30-2023 Alcohol intake [facility] Start: 08-25-2022 End: 03-30-2023 Tobacco use panel [facility] National Score (1-10 0), lower number is lower risk 99 [facility] Start: 06-12-2020 Education 13 [facility] Start: 08-25-2022 Tobacco Comment Social smoker- 1-2 times a month [facility] Start: 08-25-2022 Alcohol Comment [facility] Start: 1991 Sex Assigned At Not on file [facility] Clinical Notes 06-25-2020 to 03-30-2023 Chelsie Jacome APRN.CORRECTIONAL SUBSTANCE ABUSE COUNSELOR - 03/30/2023 11:30 AM Venancio Munguia MD - 03/23/2023 11:28 AM Venancio Munguia MD - 03/23/2023 11:07 AM Venancio Munguia MD - 01/10/2023 9:27 AM EST Note Date & Type Note Facility 03-30-2023 Note HNO ID: [id number] Author: HUNTER AHN RT(R) Service: ? Author Type: Door Operator Type: Progress Notes Filed: 03/30/2023 11:56 Note Text: Radiology Service Progress Note PATIENT NAME: Alice Horn DATE OF SERVICE: March 30, 2023 TIME: 11:44 AM PATIENT IDENTITY VERIFICATION COMPLETED USING TWO (2) IDENTIFIERS: Name and Date of confirmed by patient verbally. FALL SCREENING: Has the patient had 2 falls in the last year or 1 fall with injury or currently using an Ambulatory Assistive Device (Walker, Cane, Wheelchair, Crutches, etc.)? No PATIENT GENDER DATA: Female. status: : No status: NO. PATIENT RELEVANT IMPLANT DATA REVIEWED: Yes PATIENT PRESENTS WITH AN IMPLANTABLE OR ATTACHED CONTROL SYSTEMS SPECIALIST: No RADIOLOGY DEPARTMENT: General X-ray: Exam(s) Completed: Lower Extremity X-Ray(s): Foot, Right PERIPHERAL IV DATA: Not applicable SIGNED BY: RT Vivek(R) March 30, 2023 11:44 AM [facility] 03-30-2023 Note HNO ID: [id number] Author: CHELSIE JACOME APRN.CORRECTIONAL SUBSTANCE ABUSE COUNSELOR Service: ? Author Type: Nurse Practitioner Type: Progress Notes Filed: 03/30/2023 12:16 Note Text: Subjective Patient came in with complaints of right foot pain. Patient says has been going on for months. Patient did not injure it in any way. Patient says she wears comfortable shoes to work. Patient says signs shooting pains up her leg. Patient says it is tender to touch. The history is provided by the patient. No oyster sorter was used. Review of Systems Constitutional: Negative. Skin: Negative. Objective Physical Exam Constitutional: Appearance: Normal appearance. Pulmonary: Effort: Pulmonary effort is normal. Musculoskeletal: Feet: Feet: Comments: Tender in the area marked above no swelling, deformities, or discolorations noted. Neurological: Mental Status: She is alert. PAST MEDICAL HISTORY Diagnosis Date Antepartum anemia 06/15/2012 Anxiety disorder At risk for sexually transmitted disease due to partner with HIV Attention deficit disorder without mention of hyperactivity 11/07/2000 Cervical high risk human papillomavirus (HPV) DNA test positive 08/25/2022 H/O seasonal allergies HGSIL (high grade squamous intraepithelial lesion) on Pap smear of cervix 08/25/2022 inverted nipple left Papanicolaou smear of cervix with high grade squamous intraepithelial lesion (HGSIL) 09/01/2022 Varicella without mention of complication 05/11/1993 PAST SURGICAL HISTORY Procedure Laterality Date ADENOIDECTOMY PRIMARY MYRINGOTOMY TUBAL LIGATION Bilateral 01/08/2021 salpingectomy - [facility] 10/20/2022 HGSIL ALLERGIES Penicillins MEDICATIONS fexofenadine (KYREE ALLERGY) 180 mg tablet Take 1 tablet by mouth once daily. acetaminophen (TYLENOL) 325 mg tablet Take 650 mg by mouth every 6 hours as needed. naproxen (NAPROSYN) 375 mg tablet Take 1 tablet by mouth three times a day as needed (pain). (Patient not taking: Reported on 03/23/2023) FAMILY HISTORY Problem Relation Age of Onset Diabetes Mother Diabetes Father No Known Problems Sister ADD/ADHD Brother No Known Problems Brother other (hanging accident) Brother No Known Problems Maternal Grandmother No Known Problems Maternal Grandfather No Known Problems Paternal Grandmother No Known Problems Paternal Grandfather No Known Problems Daughter No Known Problems Son Heart Other maternal AND paternal side other (hypoglycemia [Other]) Other maternal AND paternal side Cancer Other maternal AND paternal side Diabetes Other maternal AND paternal side other (glaucom [Other]) Other maternal AND paternal side other (depression [Other]) Other maternal AND paternal side Social History Tobacco Use Smoking status: Some Days Types: Cigarettes Smokeless tobacco: Never Tobacco comments: Social smoker-1-2 times a month Vaping Use Vaping Use: Former Substance Use Topics Alcohol use: Yes Alcohol/week: 5.0 standard drinks of alcohol Types: 5 Glasses of Wine (5oz) per week Comment: occasional Drug use: Never ASSESSMENT/PLAN: 1. Pain - ICD9: 780.96, ICD10: R52 - XR FOOT GENERAL 3V AP/LAT/OBL RIGHT * * * * Physician Interpretation * * * * PROCEDURE: Right foot INDICATION: Pain .Chronic right foot pain. Pain all over entire foot. TECHNIQUE: XR FOOT 3V AP/LAT/OBL RT COMPARISON: None FINDINGS: No acute fracture or dislocation. Joint spaces are maintained. No erosions or focal soft tissue swelling. Small plantar calcaneal spur. Bipartite medial hallux sesamoid IMPRESSION IMPRESSION: No significant finding. Shaper Setter: LUIS ALBERTO Transcribe Date/Time: Mar 30 2023 11:58A Dictated by : AYAZ BOLDEN MD podiatry consult- will make her own appt Chelsie Jacome APRN.[facility] 03-30-2023 History of Presen t illness Narrative Images from the original note were not included. Subjective Patient came in with complaints of right foot pain. Patient says has been going on for months. Patient did not injure it in any way. Patient says she wears comfortable shoes to work. Patient says signs shooting pains up her leg. Patient says it is tender to touch. The history is provided by the patient. No oyster sorter was used. Review of Systems Constitutional: Negative. Skin: Negative. Objective Physical Exam Constitutional: Appearance: Normal appearance. Pulmonary: Effort: Pulmonary effort is normal. Musculoskeletal: Feet: Feet: Comments: Tender in the area marked above no swelling, deformities, or discolorations noted. Neurological: Mental Status: She is alert. PAST MEDICAL HISTORY Diagnosis Date Antepartum anemia 06/15/2012 Anxiety disorder At risk for sexually transmitted disease due to partner with HIV Attention deficit disorder without mention of hyperactivity 11/07/2000 Cervical high risk human papillomavirus (HPV) DNA test positive 08/25/2022 H/O seasonal allergies HGSIL (high grade squamous intraepithelial lesion) on Pap smear of cervix 08/25/2022 inverted nipple left Papanicolaou smear of cervix with high grade squamous intraepithelial lesion (HGSIL) 09/01/2022 Varicella without mention of complication 05/11/1993 PAST SURGICAL HISTORY Procedure Laterality Date ADENOIDECTOMY PRIMARY <AGE 13 MYRINGOTOMY TUBAL LIGATION Bilateral 01/08/2021 salpingectomy - [facility] 10/20/2022 HGSIL ALLERGIES Penicillins MEDICATIONS fexofenadine (KYREE ALLERGY) 180 mg tablet Take 1 tablet by mouth once daily. acetaminophen (TYLENOL) 325 mg tablet Take 650 mg by mouth every 6 hours as needed. naproxen (NAPROSYN) 375 mg tablet Take 1 tablet by mouth three times a day as needed (pain). (Patient not taking: Reported on 03/23/2023) FAMILY HISTORY Problem Relation Age of Onset Diabetes Mother Diabetes Father No Known Problems Sister ADD/ADHD Brother No Known Problems Brother other (hanging accident) Brother No Known Problems Maternal Grandmother No Known Problems Maternal Grandfather No Known Problems Paternal Grandmother No Known Problems Paternal Grandfather No Known Problems Daughter No Known Problems Son Heart Other maternal & paternal side other (hypoglycemia [Other]) Other maternal & paternal side Cancer Other maternal & paternal side Diabetes Other maternal & paternal side other (glaucom [Other]) Other maternal & paternal side other (depression [Other]) Other maternal & paternal side Social History Tobacco Use Smoking status: Some Days Types: Cigarettes Smokeless tobacco: Never Tobacco comments: Social smoker-1-2 times a month Vaping Use Vaping Use: Former Substance Use Topics Alcohol use: Yes Alcohol/week: 5.0 standard drinks of alcohol Types: 5 Glasses of Wine (5oz) per week Comment: occasional Drug use: Never ASSESSMENT/PLAN: 1. Pain - ICD9: 780.96, ICD10: R52 - XR FOOT GENERAL 3V AP/LAT/OBL RIGHT * * * * Physician Interpretation * * * * PROCEDURE: Right foot INDICATION: Pain .Chronic right foot pain. Pain all over entire foot. TECHNIQUE: XR FOOT 3V AP/LAT/OBL RT COMPARISON: None FINDINGS: No acute fracture or dislocation. Joint spaces are maintained. No erosions or focal soft tissue swelling. Small plantar calcaneal spur. Bipartite medial hallux sesamoid IMPRESSION IMPRESSION: No significant finding. Shaper Setter: LUIS ALBERTO Transcribe Date/Time: Mar 30 2023 11:58A Dictated by : AYAZ BOLDEN MD podiatry consult- will make her own appt Chelsie Jacome APRN.CNP documented in this encounter [facility] 03-23-2023 Note HNO ID: [id number] Author: VENANCIO MILLER MD Service: ? Author Type: Physician Type: Progress Notes Filed: 03/23/2023 11:31 Note Text: Alice Horn is a 32 year old female who presents for problem visit for f/u colp. . 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 Anxiety w/ procedures, desires to have in [place] 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: 03/01/2023 (Exact Date), Having periods Age at Menarche: Age at First : Age at Menopause: Entry Level Sales Associate History Comments: Sexual Activity: Yes; Male Contraception: Tubal Ligation PAST MEDICAL HISTORY Diagnosis Date Antepartum anemia 06/15/2012 Anxiety disorder At risk for sexually transmitted disease due to partner with HIV Attention deficit disorder without mention of hyperactivity 11/07/2000 Cervical high risk human papillomavirus (HPV) DNA test positive 08/25/2022 H/O seasonal allergies HGSIL (high grade squamous intraepithelial lesion) on Pap smear of cervix 08/25/2022 inverted nipple left Papanicolaou smear of cervix with high grade squamous intraepithelial lesion (HGSIL) 09/01/2022 Varicella without mention of complication 05/11/1993 PAST SURGICAL HISTORY Procedure Laterality Date ADENOIDECTOMY PRIMARY MYRINGOTOMY TUBAL LIGATION Bilateral 01/08/2021 salpingectomy - [facility] 10/20/2022 HGSIL FAMILY HISTORY Problem Relation Age of Onset Diabetes Mother Diabetes Father No Known Problems Sister ADD/ADHD Brother No Known Problems Brother other (hanging accident) Brother No Known Problems Maternal Grandmother No Known Problems Maternal Grandfather No Known Problems Paternal Grandmother No Known Problems Paternal Grandfather No Known Problems Daughter No Known Problems Son Heart Other maternal AND paternal side other (hypoglycemia [Other]) Other maternal AND paternal side Cancer Other maternal AND paternal side Diabetes Other maternal AND paternal side other (glaucom [Other]) Other maternal AND paternal side other (depression [Other]) Other maternal AND paternal side Social History Tobacco Use Smoking status: Some Days Types: Cigarettes Smokeless tobacco: Never Tobacco comments: Social smoker-1-2 times a month Vaping Use Vaping Use: Former Substance Use Topics Alcohol use: Yes Alcohol/week: 5.0 standard drinks of alcohol Types: 5 Glasses of Wine (5oz) per week Comment: occasional Drug use: Never Current Outpatient Medications Medication Sig fexofenadine (KYREE ALLERGY) 180 mg tablet Take 1 tablet by mouth once daily. acetaminophen (TYLENOL) 325 mg tablet Take 650 mg by mouth every 6 hours as needed. naproxen (NAPROSYN) 375 mg tablet Take 1 tablet by mouth three times a day as needed (pain). (Patient not taking: Reported on 03/23/2023) No current facility-administered medications for this visit. Allergies As of Date: 03/23/2023 Allergen Noted Reaction PENICILLINS 06/21/2013 Other: See Comments Fully Assessed 03/23/2023 Allergies and current medication updated:Yes EXAM: Wt 187 lb (84.8kg) LMP 03/01/2023 GENERAL: pleasant, female in no apparent distress ASSESSMENT AND PLAN: high grade cervical dysplasia LEEP in OR due to anxiety Venancio Miller MD [facility] 03-23-2023 History and physical note Pre-Op History and Physical HPI: The patient is a 32 year old female presenting for pre-operative visit. She is scheduled for LEEP of the cervix, for high grade cervical dysplasia on 04/07/23. Procedure discussed along with risks, benefits and complications. Other alternatives discussed for management. Consent form signed? Yes. PAST MEDICAL HISTORY Diagnosis Date Antepartum anemia 06/15/2012 Anxiety disorder At risk for sexually transmitted disease due to partner with HIV Attention deficit disorder without mention of hyperactivity 11/07/2000 Cervical high risk human papillomavirus (HPV) DNA test positive 08/25/2022 H/O seasonal allergies HGSIL (high grade squamous intraepithelial lesion) on Pap smear of cervix 08/25/2022 inverted nipple left Papanicolaou smear of cervix with high grade squamous intraepithelial lesion (HGSIL) 09/01/2022 Varicella without mention of complication 05/11/1993 PAST SURGICAL HISTORY Procedure Laterality Date ADENOIDECTOMY PRIMARY <AGE 13 MYRINGOTOMY TUBAL LIGATION Bilateral 01/08/2021 salpingectomy - [facility] 10/20/2022 HGSIL Current Outpatient Medications Medication Sig Dispense Refill fexofenadine (KYREE ALLERGY) 180 mg tablet Take 1 tablet by mouth once daily. acetaminophen (TYLENOL) 325 mg tablet Take 650 mg by mouth every 6 hours as needed. naproxen (NAPROSYN) 375 mg tablet Take 1 tablet by mouth three times a day as needed (pain). (Patient not taking: Reported on 03/23/2023) 60 tablet 1 No current facility-administered medications for this visit. ALLERGIES: Penicillins PERSONAL HISTORY: Social History Tobacco Use Smoking status: Some Days Types: Cigarettes Smokeless tobacco: Never Tobacco comments: Social smoker-1-2 times a month Vaping Use Vaping Use: Former Substance Use Topics Alcohol use: Yes Alcohol/week: 5.0 standard drinks of alcohol Types: 5 Glasses of Wine (5oz) per week Comment: occasional Drug use: Never FAMILY HISTORY: FAMILY HISTORY Problem Relation Age of Onset Diabetes Mother Diabetes Father No Known Problems Sister ADD/ADHD Brother No Known Problems Brother other (hanging accident) Brother No Known Problems Maternal Grandmother No Known Problems Maternal Grandfather No Known Problems Paternal Grandmother No Known Problems Paternal Grandfather No Known Problems Daughter No Known Problems Son Heart Other maternal & paternal side other (hypoglycemia [Other]) Other maternal & paternal side Cancer Other maternal & paternal side Diabetes Other maternal & paternal side other (glaucom [Other]) Other maternal & paternal side other (depression [Other]) Other maternal & paternal side REVIEW OF SYMPTOMS: GENERAL: denies fevers or chills ENDOCRINOLOGY: has not been on steroids Cardiology : denies palpitations or chest pain Respiratory: denies SOB or cough Hematology: denies history of prolonged bleeding or easy bruising or VTE Allergy: Denies history of personal or family history of allergy to anesthesia PHYSICAL EXAMINATION: VITALS: Blood pressure 112/82, weight 187 lb (84.8 kg), last menstrual period 03/01/2023. GENERAL: The patient is well nourished, well hydrated in no acute distress. , The patient is oriented to time, place, and person. NECK: Supple. No lynphadenopathy, normal thyroid, no thyromegaly. LUNGS: Clear to auscultation bilaterally. no wheezes, rhonchi or rales HEART: Regular rate and rhythm, Normal heart sounds, and No murmurs or gallops IMPRESSION: high grade cervical dysplaisa PLAN: r/b/a to leep in or reviewed, desires to proceed I have reviewed and updated past medical and surgical history, medications and allergies Venancio Miller M.D. documented in this encounter [facility] 03-23-2023 History of Presen t illness Narrative Alice Horn is a 32 year old female who presents for problem visit for f/u colp. . 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 Anxiety w/ procedures, desires to have in OR 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: 03/01/2023 (Exact Date), Having periods Age at Menarche: Age at First : Age at Menopause: Entry Level Sales Associate History Comments: Sexual Activity: Yes; Male Contraception: Tubal Ligation PAST MEDICAL HISTORY Diagnosis Date Antepartum anemia 06/15/2012 Anxiety disorder At risk for sexually transmitted disease due to partner with HIV Attention deficit disorder without mention of hyperactivity 11/07/2000 Cervical high risk human papillomavirus (HPV) DNA test positive 08/25/2022 H/O seasonal allergies HGSIL (high grade squamous intraepithelial lesion) on Pap smear of cervix 08/25/2022 inverted nipple left Papanicolaou smear of cervix with high grade squamous intraepithelial lesion (HGSIL) 09/01/2022 Varicella without mention of complication 05/11/1993 PAST SURGICAL HISTORY Procedure Laterality Date ADENOIDECTOMY PRIMARY <AGE 13 MYRINGOTOMY TUBAL LIGATION Bilateral 01/08/2021 salpingectomy - [facility] 10/20/2022 HGSIL FAMILY HISTORY Problem Relation Age of Onset Diabetes Mother Diabetes Father No Known Problems Sister ADD/ADHD Brother No Known Problems Brother other (hanging accident) Brother No Known Problems Maternal Grandmother No Known Problems Maternal Grandfather No Known Problems Paternal Grandmother No Known Problems Paternal Grandfather No Known Problems Daughter No Known Problems Son Heart Other maternal & paternal side other (hypoglycemia [Other]) Other maternal & paternal side Cancer Other maternal & paternal side Diabetes Other maternal & paternal side other (glaucom [Other]) Other maternal & paternal side other (depression [Other]) Other maternal & paternal side Social History Tobacco Use Smoking status: Some Days Types: Cigarettes Smokeless tobacco: Never Tobacco comments: Social smoker-1-2 times a month Vaping Use Vaping Use: Former Substance Use Topics Alcohol use: Yes Alcohol/week: 5.0 standard drinks of alcohol Types: 5 Glasses of Wine (5oz) per week Comment: occasional Drug use: Never Current Outpatient Medications Medication Sig fexofenadine (KYREE ALLERGY) 180 mg tablet Take 1 tablet by mouth once daily. acetaminophen (TYLENOL) 325 mg tablet Take 650 mg by mouth every 6 hours as needed. naproxen (NAPROSYN) 375 mg tablet Take 1 tablet by mouth three times a day as needed (pain). (Patient not taking: Reported on 03/23/2023) No current facility-administered medications for this visit. Allergies As of Date: 03/23/2023 Allergen Noted Reaction PENICILLINS 06/21/2013 Other: See Comments Fully Assessed 03/23/2023 Allergies and current medication updated:Yes EXAM: Wt 187 lb (84.8kg) LMP 03/01/2023 GENERAL: pleasant, female in no apparent distress ASSESSMENT AND PLAN: high grade cervical dysplasia LEEP in OR due to anxiety Vneancio Miller MD documented in this encounter [facility] 01-10-2023 Note HNO ID: [id number] Author: Venancio Miller MD Service: ? Author Type: Physician Type: Progress Notes Filed: 01/10/2023 10:32 AM Note Text: Alice Horn is a 32 year old female who presents for problem visit for f/u cervical dysplasia. HPI: no new c/o today. H/o abnormla paps. Last [employer] showed high grade dyspasia, neg ECC. Desires to have done in OR due to anxiety/discomfort w/ colposcopy. 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: 12/27/2022 (Exact Date), Having periods Age at Menarche: Age at First : Age at Menopause: Entry Level Sales Associate History Comments: Sexual Activity: Yes; Male Contraception: Tubal Ligation PAST MEDICAL HISTORY Diagnosis Date Antepartum anemia 06/15/2012 Anxiety disorder At risk for sexually transmitted disease due to partner with HIV Attention deficit disorder without mention of hyperactivity 11/07/2000 Cervical high risk human papillomavirus (HPV) DNA test positive 08/25/2022 H/O seasonal allergies HGSIL (high grade squamous intraepithelial lesion) on Pap smear of cervix 08/25/2022 inverted nipple left Papanicolaou smear of cervix with high grade squamous intraepithelial lesion (HGSIL) 09/01/2022 Varicella without mention of complication 05/11/1993 PAST SURGICAL HISTORY Procedure Laterality Date ADENOIDECTOMY PRIMARY MYRINGOTOMY TUBAL LIGATION Bilateral 01/08/2021 salpingectomy - [facility] 10/20/2022 HGSIL FAMILY HISTORY Problem Relation Age of Onset Diabetes Mother Diabetes Father No Known Problems Sister ADD/ADHD Brother No Known Problems Brother other (hanging accident) Brother No Known Problems Maternal Grandmother No Known Problems Maternal Grandfather No Known Problems Paternal Grandmother No Known Problems Paternal Grandfather No Known Problems Daughter No Known Problems Son Heart Other maternal AND paternal side other (hypoglycemia [Other]) Other maternal AND paternal side Cancer Other maternal AND paternal side Diabetes Other maternal AND paternal side other (glaucom [Other]) Other maternal AND paternal side other (depression [Other]) Other maternal AND paternal side Social History Tobacco Use Smoking status: Some Days Types: Cigarettes Smokeless tobacco: Never Tobacco comments: Social smoker-1-2 times a month Vaping Use Vaping Use: Former Substance Use Topics Alcohol use: Yes Alcohol/week: 5.0 standard drinks of alcohol Types: 5 Glasses of Wine (5oz) per week Comment: occasional Drug use: Never Current Outpatient Medications Medication Sig fexofenadine (KYREE ALLERGY) 180 mg tablet Take 1 tablet by mouth once daily. acetaminophen (TYLENOL) 325 mg tablet Take 650 mg by mouth every 6 hours as needed. No current facility-administered medications for this visit. Allergies As of Date: 01/10/2023 Allergen Noted Reaction ANIMAL DANDER 04/18/2012 Other: See Comments ENVIRONMENTAL [OTHER] 02/03/2008 Hives PENICILLINS 06/21/2013 Other: See Comments Fully Assessed 11/24/2022 Allergies and current medication updated:Yes EXAM: BP 122/78 Pulse 96 Resp 16 Ht 5' 5 (1.65m) Wt 182 lb (82.6kg) SpO2 98% LMP 12/27/2022 BMI 30.29 kg/(m2). GENERAL: pleasant, female in no apparent distress ASSESSMENT AND PLAN: Encounter Diagnosis ICD-10-CM 1. High grade squamous intraepithelial cervical dysplasia R87.613 r/b/a p to LEEP in OR vs office reviewed, desires in OR. Questions answered and she desires to proceed. rx given for postop pain Venancio Miller MD [facility] 01-10-2023 History of Presen t illness Narrative Alice Horn is a 32 year old female who presents for problem visit for f/u cervical dysplasia. HPI: no new c/o today. H/o abnormla paps. Last [employer] showed high grade dyspasia, neg ECC. Desires to have done in OR due to anxiety/discomfort w/ colposcopy. 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: 12/27/2022 (Exact Date), Having periods Age at Menarche: Age at First : Age at Menopause: Entry Level Sales Associate History Comments: Sexual Activity: Yes; Male Contraception: Tubal Ligation PAST MEDICAL HISTORY Diagnosis Date Antepartum anemia 06/15/2012 Anxiety disorder At risk for sexually transmitted disease due to partner with HIV Attention deficit disorder without mention of hyperactivity 11/07/2000 Cervical high risk human papillomavirus (HPV) DNA test positive 08/25/2022 H/O seasonal allergies HGSIL (high grade squamous intraepithelial lesion) on Pap smear of cervix 08/25/2022 inverted nipple left Papanicolaou smear of cervix with high grade squamous intraepithelial lesion (HGSIL) 09/01/2022 Varicella without mention of complication 05/11/1993 PAST SURGICAL HISTORY Procedure Laterality Date ADENOIDECTOMY PRIMARY <AGE 13 MYRINGOTOMY TUBAL LIGATION Bilateral 01/08/2021 salpingectomy - [facility] 10/20/2022 HGSIL FAMILY HISTORY Problem Relation Age of Onset Diabetes Mother Diabetes Father No Known Problems Sister ADD/ADHD Brother No Known Problems Brother other (hanging accident) Brother No Known Problems Maternal Grandmother No Known Problems Maternal Grandfather No Known Problems Paternal Grandmother No Known Problems Paternal Grandfather No Known Problems Daughter No Known Problems Son Heart Other maternal & paternal side other (hypoglycemia [Other]) Other maternal & paternal side Cancer Other maternal & paternal side Diabetes Other maternal & paternal side other (glaucom [Other]) Other maternal & paternal side other (depression [Other]) Other maternal & paternal side Social History Tobacco Use Smoking status: Some Days Types: Cigarettes Smokeless tobacco: Never Tobacco comments: Social smoker-1-2 times a month Vaping Use Vaping Use: Former Substance Use Topics Alcohol use: Yes Alcohol/week: 5.0 standard drinks of alcohol Types: 5 Glasses of Wine (5oz) per week Comment: occasional Drug use: Never Current Outpatient Medications Medication Sig fexofenadine (KYREE ALLERGY) 180 mg tablet Take 1 tablet by mouth once daily. acetaminophen (TYLENOL) 325 mg tablet Take 650 mg by mouth every 6 hours as needed. No current facility-administered medications for this visit. Allergies As of Date: 01/10/2023 Allergen Noted Reaction ANIMAL DANDER 04/18/2012 Other: See Comments ENVIRONMENTAL [OTHER] 02/03/2008 Hives PENICILLINS 06/21/2013 Other: See Comments Fully Assessed 11/24/2022 Allergies and current medication updated:Yes EXAM: BP 122/78 Pulse 96 Resp 16 Ht 5' 5 (1.65m) Wt 182 lb (82.6kg) SpO2 98% LMP 12/27/2022 BMI 30.29 kg/(m^2). GENERAL: pleasant, female in no apparent distress ASSESSMENT AND PLAN: Encounter Diagnosis ICD-10-CM 1. High grade squamous intraepithelial cervical dysplasia R87.613 r/b/a p to LEEP in OR vs office reviewed, desires in OR. Questions answered and she desires to proceed. rx given for postop pain Venancio Miller MD documented in this encounter [facility] 01-10-2023 History and physical note Pre-Op History and Physical HPI: The patient is a 32 year old female presenting for pre-operative visit. She is scheduled for LEEP, for high grade cervical dysplasia on 01/21/23. Procedure discussed along with risks, benefits and complications. Other alternatives discussed for management. Consent form signed? Yes. PAST MEDICAL HISTORY Diagnosis Date Antepartum anemia 06/15/2012 Anxiety disorder At risk for sexually transmitted disease due to partner with HIV Attention deficit disorder without mention of hyperactivity 11/07/2000 Cervical high risk human papillomavirus (HPV) DNA test positive 08/25/2022 H/O seasonal allergies HGSIL (high grade squamous intraepithelial lesion) on Pap smear of cervix 08/25/2022 inverted nipple left Papanicolaou smear of cervix with high grade squamous intraepithelial lesion (HGSIL) 09/01/2022 Varicella without mention of complication 05/11/1993 PAST SURGICAL HISTORY Procedure Laterality Date ADENOIDECTOMY PRIMARY <AGE 13 MYRINGOTOMY TUBAL LIGATION Bilateral 01/08/2021 salpingectomy - [facility] 10/20/2022 HGSIL Current Outpatient Medications Medication Sig Dispense Refill fexofenadine (KYREE ALLERGY) 180 mg tablet Take 1 tablet by mouth once daily. acetaminophen (TYLENOL) 325 mg tablet Take 650 mg by mouth every 6 hours as needed. No current facility-administered medications for this visit. ALLERGIES: Animal Dander, Environmental [Other], and Penicillins PERSONAL HISTORY: Social History Tobacco Use Smoking status: Some Days Types: Cigarettes Smokeless tobacco: Never Tobacco comments: Social smoker-1-2 times a month Vaping Use Vaping Use: Former Substance Use Topics Alcohol use: Yes Alcohol/week: 5.0 standard drinks of alcohol Types: 5 Glasses of Wine (5oz) per week Comment: occasional Drug use: Never FAMILY HISTORY: FAMILY HISTORY Problem Relation Age of Onset Diabetes Mother Diabetes Father No Known Problems Sister ADD/ADHD Brother No Known Problems Brother other (hanging accident) Brother No Known Problems Maternal Grandmother No Known Problems Maternal Grandfather No Known Problems Paternal Grandmother No Known Problems Paternal Grandfather No Known Problems Daughter No Known Problems Son Heart Other maternal & paternal side other (hypoglycemia [Other]) Other maternal & paternal side Cancer Other maternal & paternal side Diabetes Other maternal & paternal side other (glaucom [Other]) Other maternal & paternal side other (depression [Other]) Other maternal & paternal side REVIEW OF SYMPTOMS: GENERAL: denies fevers or chills ENDOCRINOLOGY: has not been on steroids Cardiology : denies palpitations or chest pain Respiratory: denies SOB or cough Hematology: denies history of prolonged bleeding or easy bruising or VTE Allergy: Denies history of personal or family history of allergy to anesthesia PHYSICAL EXAMINATION: VITALS: Blood pressure 122/78, pulse 96, resp. rate 16, height 5' 5 (1.651 m), weight 182 lb (82.6 kg), last menstrual period 12/27/2022, SpO2 98%. GENERAL: The patient is well nourished, well hydrated in no acute distress. , The patient is oriented to time, place, and person. NECK: Supple. No lynphadenopathy, normal thyroid, no thyromegaly. LUNGS: Clear to auscultation bilaterally. no wheezes, rhonchi or rales HEART: Regular rate and rhythm, Normal heart sounds, and No murmurs or gallops IMPRESSION: high grade cervical dysplasia PLAN: The risks/benefits/alternatives and personal involved for the planned LEEP of the cervix were reviewed with the patient. Her questions were answered to her satisfaction and she desires to proceed. Consent was signed. I reviewed with her postop instructions and expectations. I have reviewed and updated past medical and surgical history, medications and allergies Venancio Miller M.D. documented in this encounter [facility] 11-24-2022 Note HNO ID: [id number] Author: Venancio Miller MD Service: ? Author Type: Physician Type: Progress Notes Filed: 11/24/2022 4:39 PM Note Text: Alice Horn is a 32 year old female who presents for problem visit for f/u colp bxs. HPI: Patient w/o new c/o today. Cramping and spotting after biopsies resolved within a few days. 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: 10/28/2022 (Exact Date), Having periods Age at Menarche: Age at First : Age at Menopause: Entry Level Sales Associate History Comments: Sexual Activity: Yes; Male Contraception: Tubal Ligation PAST MEDICAL HISTORY Diagnosis Date Antepartum anemia 06/15/2012 Anxiety disorder At risk for sexually transmitted disease due to partner with HIV Attention deficit disorder without mention of hyperactivity 11/07/2000 Cervical high risk human papillomavirus (HPV) DNA test positive 08/25/2022 H/O seasonal allergies HGSIL (high grade squamous intraepithelial lesion) on Pap smear of cervix 08/25/2022 inverted nipple left Papanicolaou smear of cervix with high grade squamous intraepithelial lesion (HGSIL) 09/01/2022 Varicella without mention of complication 05/11/1993 PAST SURGICAL HISTORY Procedure Laterality Date ADENOIDECTOMY PRIMARY MYRINGOTOMY TUBAL LIGATION Bilateral 01/08/2021 salpingectomy - [facility] FAMILY HISTORY Problem Relation Age of Onset Diabetes Mother Diabetes Father No Known Problems Sister ADD/ADHD Brother No Known Problems Brother other (hanging accident) Brother No Known Problems Maternal Grandmother No Known Problems Maternal Grandfather No Known Problems Paternal Grandmother No Known Problems Paternal Grandfather No Known Problems Daughter No Known Problems Son Heart Other maternal AND paternal side other (hypoglycemia [Other]) Other maternal AND paternal side Cancer Other maternal AND paternal side Diabetes Other maternal AND paternal side other (glaucom [Other]) Other maternal AND paternal side other (depression [Other]) Other maternal AND paternal side Social History Tobacco Use Smoking status: Some Days Types: Cigarettes Smokeless tobacco: Never Tobacco comments: Social smoker-1-2 times a month Vaping Use Vaping Use: Former Substance Use Topics Alcohol use: Yes Alcohol/week: 5.0 standard drinks of alcohol Types: 5 Glasses of Wine (5oz) per week Comment: occasional Drug use: Never Current Outpatient Medications Medication Sig fexofenadine (KYREE ALLERGY) 180 mg tablet Take 1 tablet by mouth once daily. acetaminophen (TYLENOL) 325 mg tablet Take 650 mg by mouth every 6 hours as needed. No current facility-administered medications for this visit. 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 Prefers OR due to some anxiety about in office procedure. Schedule next available. Importance of f/u reviewed. Plans to complete HPV 9 vaccine series Venancio Miller MD [facility] 11-24-2022 History of Presen t illness Narrative Alice Horn is a 32 year old female who presents for problem visit for f/u colp bxs. HPI: Patient w/o new c/o today. Cramping and spotting after biopsies resolved within a few days. 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: 10/28/2022 (Exact Date), Having periods Age at Menarche: Age at First : Age at Menopause: Entry Level Sales Associate History Comments: Sexual Activity: Yes; Male Contraception: Tubal Ligation PAST MEDICAL HISTORY Diagnosis Date Antepartum anemia 06/15/2012 Anxiety disorder At risk for sexually transmitted disease due to partner with HIV Attention deficit disorder without mention of hyperactivity 11/07/2000 Cervical high risk human papillomavirus (HPV) DNA test positive 08/25/2022 H/O seasonal allergies HGSIL (high grade squamous intraepithelial lesion) on Pap smear of cervix 08/25/2022 inverted nipple left Papanicolaou smear of cervix with high grade squamous intraepithelial lesion (HGSIL) 09/01/2022 Varicella without mention of complication 05/11/1993 PAST SURGICAL HISTORY Procedure Laterality Date ADENOIDECTOMY PRIMARY <AGE 13 MYRINGOTOMY TUBAL LIGATION Bilateral 01/08/2021 salpingectomy - [facility] FAMILY HISTORY Problem Relation Age of Onset Diabetes Mother Diabetes Father No Known Problems Sister ADD/ADHD Brother No Known Problems Brother other (hanging accident) Brother No Known Problems Maternal Grandmother No Known Problems Maternal Grandfather No Known Problems Paternal Grandmother No Known Problems Paternal Grandfather No Known Problems Daughter No Known Problems Son Heart Other maternal & paternal side other (hypoglycemia [Other]) Other maternal & paternal side Cancer Other maternal & paternal side Diabetes Other maternal & paternal side other (glaucom [Other]) Other maternal & paternal side other (depression [Other]) Other maternal & paternal side Social History Tobacco Use Smoking status: Some Days Types: Cigarettes Smokeless tobacco: Never Tobacco comments: Social smoker-1-2 times a month Vaping Use Vaping Use: Former Substance Use Topics Alcohol use: Yes Alcohol/week: 5.0 standard drinks of alcohol Types: 5 Glasses of Wine (5oz) per week Comment: occasional Drug use: Never Current Outpatient Medications Medication Sig fexofenadine (KYREE ALLERGY) 180 mg tablet Take 1 tablet by mouth once daily. acetaminophen (TYLENOL) 325 mg tablet Take 650 mg by mouth every 6 hours as needed. No current facility-administered medications for this visit. 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 Prefers OR due to some anxiety about in office procedure. Schedule next available. Importance of f/u reviewed. Plans to complete HPV 9 vaccine series Venancio Miller MD documented in this encounter [facility] 10-26-2022 Note HNO ID: [id number] Author: Audrey Hugo Ma Service: ? Author Type: ? Type: Progress Notes Filed: 10/26/2022 10:53 AM Note Text: Patient identified by name and date of . Alice Horn is here for her HPV 9 vaccination, injection # one of the series. Patient ?No Gardasil injection was given without incident. See immunizations for details of immunizations administered today. VIS sheet provided: Yes Patient advised to follow up in 4 months from the 2nd injection Provider Tavo was present in office at time of injection. Audrey Hugo Ma [facility] 10-20-2022 Note HNO ID: [id number] Author: Venancio Miller MD Service: ? Author Type: Physician Type: Progress Notes Filed: 10/20/2022 4:39 PM Note Text: Alice is a 32 year old who presents today for a colposcopy. The patient's last pap smear was HGSIL and Positive HPV from August 2022. Patient has a history of abnormal pap: No. The patient has had prior treatment: none. test: negative UNIVERSAL PROTOCOL / SAFETY CHECKLIST Procedure to be Performed: colposcopy with possible biopssy Sign In: A Moment of CARE was completed. Personnel directly involved with the procedure wore the appropriate PPE (Personal Protective Equipment). Patient/Surrogate Stated/Verified: PATIENT VERIFIED(optional for EMERGENT procedures): Patient name, Date of , Relevant allergies, and The intended procedure Time Out Communication: Intended patient and procedure match the source documents. Consent documented and matches the intended procedure. No implant(s) inserted. Sign Out: SIGN OUT (optional for EMERGENT procedures): All specimen containers correctly labeled. All instruments, equipment, possible retained foreign bodies accounted for. Post-procedure follow-up management communicated and Plan of Care Visit completed when applicable. Venancio Miller M.D. PROCEDURE: EXTERNAL GENITALIA: Normal in appearance without lesions VAGINA: Normal in appearance without lesions CERVIX: Speculum placed in vagina and excellent visualization of cervix achieved. Cervix swabbed x 3 with 3% acetic acid solution. Cervix grossly normal. Squamocolumnar junction visualized. acetowhite changes noted difusely, punctations noted -7-8 oclock, mosaicism noted diffusely, and atypical vasculature noted none. BIOPSY: Done at 1:00, 5:00, 7:00, and 11:00 ECC: done HEMOSTASIS: Obtained with Monsel's solution, silver nitrate, and pressure Procedure Summary: Patient tolerated procedure well and colposcopy was adequate. ASSESSMENT: HPV effect PLAN: Specimens labeled and sent to Pathology. Will notify patient of results in 1-2 weeks. Post-procedure instructions reviewed and written material given to the patient. Recommended gardasil vaccine, she had first dose, schedule second. Venancio Miller MD [facility] 10-20-2022 Instructions Ester Mclean Ma - 10/20/2022 3:10 PM EDT YOUR RECOVERY It may take a few weeks for your cervix to heal. While your cervix heals, you may have: - Vaginal bleeding (less than a normal menstrual period) - Mild cramping - A brown-black vaginal discharge (similar to coffee grounds) which is a result of the paste used to help stop bleeding from the procedure Do NOT put anything in the vagina for 1 week after your colposcopy if your doctor does a biopsy of your cervix. This includes sex, tampons, and douches. If you have any discomfort, you may take an over the counter pain medication (motrin, advil, ibuprofen, tylenol, etc). If this does not relieve your discomfort, contact your doctor's office for a prescription strength pain medication. It is okay to wear a sanitary pad until the discharge and spotting stops. RISKS Although problems seldom occur with colposcopy, there can be some complications. You may feel faint during and shortly after the procedure as well as have some bleeding and vaginal discharge after the procedure. There is also a risk of infection after the procedure. These complications are rare and can be easily treated. You should contact you doctor is you have any of the following: - Heavy bleeding (more than your normal period) - Bleeding with clots - Severe abdominal pain - Fever (more than 100.4F) - Foul smelling vaginal discharge RESULTS If a biopsy was taken, we will have the results of your biopsy in 1-2 weeks. If you do not hear the results of your biopsy after 2 weeks, please contact your physicians office for the results. Depending on the biopsy results, your doctor will determine your follow up plan which may include further testing or treatments. STAYING HEALTHY After the procedure, you will need to see your doctor for follow up visits during the year. At these visits your doctor will check the health of your cervix with a pap smear. After three normal pap smears, your doctor will allow you to return to having exams once a year. If you have another abnormal pap smear, you may need closer follow up for longer or you may need additional treatment. By making a few lifestyle changes after the procedure, you can help protect the health of your cervix: - Have regular pelvic exams and pap smears as ordered by your doctor. - Stop smoking as smoking increases your risk of developing a cancer of the cervix - If you have more than one sexual partner, limit your number of partners and use condoms to reduce your risks of STDs. If you have any additional questions, please contact your doctor's office. documented in this encounter [facility] 10-20-2022 History of Presen t illness Narrative Alice is a 32 year old who presents today for a colposcopy. The patient's last pap smear was HGSIL and Positive HPV from August 2022. Patient has a history of abnormal pap: No. The patient has had prior treatment: none. test: negative UNIVERSAL PROTOCOL / SAFETY CHECKLIST Procedure to be Performed: colposcopy with possible biopssy Sign In: A Moment of CARE was completed. Personnel directly involved with the procedure wore the appropriate PPE (Personal Protective Equipment). Patient/Surrogate Stated/Verified: PATIENT VERIFIED(optional for EMERGENT procedures): Patient name, Date of , Relevant allergies, and The intended procedure Time Out Communication: Intended patient and procedure match the source documents. Consent documented and matches the intended procedure. No implant(s) inserted. Sign Out: SIGN OUT (optional for EMERGENT procedures): All specimen containers correctly labeled. All instruments, equipment, possible retained foreign bodies accounted for. Post-procedure follow-up management communicated and Plan of Care Visit completed when applicable. Venancio Miller M.D. PROCEDURE: EXTERNAL GENITALIA: Normal in appearance without lesions VAGINA: Normal in appearance without lesions CERVIX: Speculum placed in vagina and excellent visualization of cervix achieved. Cervix swabbed x 3 with 3% acetic acid solution. Cervix grossly normal. Squamocolumnar junction visualized. acetowhite changes noted difusely, punctations noted -7-8 oclock, mosaicism noted diffusely, and atypical vasculature noted none. BIOPSY: Done at 1:00, 5:00, 7:00, and 11:00 ECC: done HEMOSTASIS: Obtained with Monsel's solution, silver nitrate, and pressure Procedure Summary: Patient tolerated procedure well and colposcopy was adequate. ASSESSMENT: HPV effect PLAN: Specimens labeled and sent to Pathology. Will notify patient of results in 1-2 weeks. Post-procedure instructions reviewed and written material given to the patient. Recommended gardasil vaccine, she had first dose, schedule second. Venancio Miller MD documented in this encounter [facility] 10-13-2022 Note HNO ID: [id number] Author: Ashley Canales APRN.CORRECTIONAL SUBSTANCE ABUSE COUNSELOR Service: ? Author Type: Nurse Practitioner Type: Progress Notes Filed: 10/13/2022 7:23 PM Note Text: This note was created using [employer]ge[employer]. Subjective Alice Horn is a 32 year old female. 32 year old female with PMH ADHD presents for complaints of illness. Acute onset yesterday morning. +stuffy nose +sinus blockage +headache +body aches. +fever +chills +cough Denies tobacco usage. Denies using homeopathic or OTC medications [employer] Requesting work note. Accompanied by her son for similar. The history is provided by the patient. No oyster sorter was used. Flu Like Symptoms This is a new problem. The current episode started yesterday. The problem occurs constantly. The problem has been gradually worsening. Associated symptoms include chills, congestion, coughing, fatigue, a fever, myalgias, nausea and a sore throat. Pertinent negatives include no abdominal pain, anorexia, arthralgias, change in bowel habit, chest pain, diaphoresis, headaches, joint swelling, neck pain, numbness, rash, swollen glands, urinary symptoms, vertigo, visual change, vomiting or weakness. Nothing aggravates the symptoms. She has tried nothing for the symptoms. The treatment provided no relief. PAST MEDICAL HISTORY Diagnosis Date Antepartum anemia 06/15/2012 Anxiety disorder At risk for sexually transmitted disease due to partner with HIV Attention deficit disorder without mention of hyperactivity 11/07/2000 H/O seasonal allergies inverted nipple left Papanicolaou smear of cervix with high grade squamous intraepithelial lesion (HGSIL) 09/01/2022 Varicella without mention of complication 05/11/1993 PAST SURGICAL HISTORY Procedure Laterality Date ADENOIDECTOMY PRIMARY MYRINGOTOMY TUBAL LIGATION Bilateral 01/08/2021 salpingectomy - [facility] ALLERGIES Animal Dander, Environmental [Other], and Penicillins MEDICATIONS fexofenadine (KYREE ALLERGY) 180 mg tablet Take 1 tablet by mouth once daily. acetaminophen (TYLENOL) 325 mg tablet Take 650 mg by mouth every 6 hours as needed. ibuprofen (MOTRIN) 600 mg tablet Take 1 tablet by mouth every 6 hours as needed for pain. (Patient not taking: Reported on 10/13/2022) FAMILY HISTORY Problem Relation Age of Onset Diabetes Mother Diabetes Father No Known Problems Sister ADD/ADHD Brother No Known Problems Brother other (hanging accident) Brother No Known Problems Maternal Grandmother No Known Problems Maternal Grandfather No Known Problems Paternal Grandmother No Known Problems Paternal Grandfather No Known Problems Daughter No Known Problems Son Heart Other maternal AND paternal side other (hypoglycemia [Other]) Other maternal AND paternal side Cancer Other maternal AND paternal side Diabetes Other maternal AND paternal side other (glaucom [Other]) Other maternal AND paternal side other (depression [Other]) Other maternal AND paternal side Social History Tobacco Use Smoking status: Some Days Types: Cigarettes Smokeless tobacco: Never Tobacco comments: Social smoker-1-2 times a month Vaping Use Vaping Use: Former Substance Use Topics Alcohol use: Yes Alcohol/week: 5.0 standard drinks of alcohol Types: 5 Glasses of Wine (5oz) per week Comment: occasional Drug use: Never Review of Systems Constitutional: Positive for chills, fatigue and fever. Negative for diaphoresis. HENT: Positive for congestion, ear pain, postnasal drip, sinus pressure, sinus pain and sore throat. Eyes: Negative for pain, discharge, redness and itching. Respiratory: Positive for cough. Negative for apnea, choking and chest tightness. Cardiovascular: Negative for chest pain. Gastrointestinal: Positive for nausea. Negative for abdominal pain, anorexia, change in bowel habit, diarrhea and vomiting. Musculoskeletal: Positive for myalgias. Negative for arthralgias, joint swelling and neck pain. Skin: Negative for color change, pallor and rash. Allergic/Immunologic: Positive for environmental allergies and food allergies. Negative for immunocompromised state. Neurological: Negative for dizziness, vertigo, facial asymmetry, weakness, numbness and headaches. Hematological: Negative for adenopathy. Does not bruise/bleed easily. Psychiatric/Behavioral: Negative for agitation and behavioral problems. Objective BP 114/82 Pulse 103 Temp 37.8 ?C (100 ?F) Resp 21 Wt 83.3 kg (183 lb 9.6 oz) LMP 07/25/2022 SpO2 99% BMI 30.55 kg/m? Physical Exam Vitals and nursing note reviewed. Constitutional: General: She is not in acute distress. Appearance: Normal appearance. She is normal weight. She is not ill-appearing, toxic-appearing or diaphoretic. HENT: Head: Normocephalic and atraumatic. Comments: +frontal sinus pressure +maxillary sinus pressure Right Ear: Ear canal and external ear normal. Left Ear: Ear canal and external ear (more content not included)... [facility] 10-13-2022 History of Presen t illness Narrative This note was created using [employer]ge[employer]. Subjective Alice Horn is a 32 year old female. 32 year old female with PMH ADHD presents for complaints of illness. Acute onset yesterday morning. +stuffy nose +sinus blockage +headache +body aches. +fever +chills +cough Denies tobacco usage. Denies using homeopathic or OTC medications [employer] Requesting work note. Accompanied by her son for similar. The history is provided by the patient. No oyster sorter was used. Flu Like Symptoms This is a new problem. The current episode started yesterday. The problem occurs constantly. The problem has been gradually worsening. Associated symptoms include chills, congestion, coughing, fatigue, a fever, myalgias, nausea and a sore throat. Pertinent negatives include no abdominal pain, anorexia, arthralgias, change in bowel habit, chest pain, diaphoresis, headaches, joint swelling, neck pain, numbness, rash, swollen glands, urinary symptoms, vertigo, visual change, vomiting or weakness. Nothing aggravates the symptoms. She has tried nothing for the symptoms. The treatment provided no relief. PAST MEDICAL HISTORY Diagnosis Date Antepartum anemia 06/15/2012 Anxiety disorder At risk for sexually transmitted disease due to partner with HIV Attention deficit disorder without mention of hyperactivity 11/07/2000 H/O seasonal allergies inverted nipple left Papanicolaou smear of cervix with high grade squamous intraepithelial lesion (HGSIL) 09/01/2022 Varicella without mention of complication 05/11/1993 PAST SURGICAL HISTORY Procedure Laterality Date ADENOIDECTOMY PRIMARY <AGE 13 MYRINGOTOMY TUBAL LIGATION Bilateral 01/08/2021 salpingectomy - [facility] ALLERGIES Animal Dander, Environmental [Other], and Penicillins MEDICATIONS fexofenadine (KYREE ALLERGY) 180 mg tablet Take 1 tablet by mouth once daily. acetaminophen (TYLENOL) 325 mg tablet Take 650 mg by mouth every 6 hours as needed. ibuprofen (MOTRIN) 600 mg tablet Take 1 tablet by mouth every 6 hours as needed for pain. (Patient not taking: Reported on 10/13/2022) FAMILY HISTORY Problem Relation Age of Onset Diabetes Mother Diabetes Father No Known Problems Sister ADD/ADHD Brother No Known Problems Brother other (hanging accident) Brother No Known Problems Maternal Grandmother No Known Problems Maternal Grandfather No Known Problems Paternal Grandmother No Known Problems Paternal Grandfather No Known Problems Daughter No Known Problems Son Heart Other maternal & paternal side other (hypoglycemia [Other]) Other maternal & paternal side Cancer Other maternal & paternal side Diabetes Other maternal & paternal side other (glaucom [Other]) Other maternal & paternal side other (depression [Other]) Other maternal & paternal side Social History Tobacco Use Smoking status: Some Days Types: Cigarettes Smokeless tobacco: Never Tobacco comments: Social smoker-1-2 times a month Vaping Use Vaping Use: Former Substance Use Topics Alcohol use: Yes Alcohol/week: 5.0 standard drinks of alcohol Types: 5 Glasses of Wine (5oz) per week Comment: occasional Drug use: Never Review of Systems Constitutional: Positive for chills, fatigue and fever. Negative for diaphoresis. HENT: Positive for congestion, ear pain, postnasal drip, sinus pressure, sinus pain and sore throat. Eyes: Negative for pain, discharge, redness and itching. Respiratory: Positive for cough. Negative for apnea, choking and chest tightness. Cardiovascular: Negative for chest pain. Gastrointestinal: Positive for nausea. Negative for abdominal pain, anorexia, change in bowel habit, diarrhea and vomiting. Musculoskeletal: Positive for myalgias. Negative for arthralgias, joint swelling and neck pain. Skin: Negative for color change, pallor and rash. Allergic/Immunologic: Positive for environmental allergies and food allergies. Negative for immunocompromised state. Neurological: Negative for dizziness, vertigo, facial asymmetry, weakness, numbness and headaches. Hematological: Negative for adenopathy. Does not bruise/bleed easily. Psychiatric/Behavioral: Negative for agitation and behavioral problems. Objective BP 114/82 Pulse 103 Temp 37.8 C (100 F) Resp 21 Wt 83.3 kg (183 lb 9.6 oz) LMP 07/25/2022 SpO2 99% BMI 30.55 kg/m Physical Exam Vitals and nursing note reviewed. Constitutional: General: She is not in acute distress. Appearance: Normal appearance. She is normal weight. She is not ill-appearing, toxic-appearing or diaphoretic. HENT: Head: Normocephalic and atraumatic. Comments: +frontal sinus pressure +maxillary sinus pressure Right Ear: Ear canal and external ear normal. Left Ear: Ear canal and external ear normal. Nose: Congestion present. No rhinorrhea. Mouth/Throat: Mouth: Mucous membranes are moist. Pharynx: Posterior oropharyngeal erythema present. No oropharyngeal exudate. Eyes: General: Right eye: No discharge. Left eye: No discharge. Extraocular Movements: Extraocular movements intact. Conjunctiva/sclera: Conjunctivae normal. Pupils: Pupils are equal, round, and reactive to light. Cardiovascular: Rate and Rhythm: Normal rate and regular rhythm. Pulses: Normal pulses. Heart sounds: Normal heart sounds. No murmur heard. No friction rub. Pulmonary: Effort: Pulmonary effort is normal. No respiratory distress. Breath sounds: Normal breath sounds. No stridor. No wheezing, rhonchi or rales. Chest: Chest wall: No tenderness. Abdominal: General: Abdomen is flat. There is no distension. Palpations: Abdomen is soft. There is no mass. Tenderness: There is no abdominal tenderness. There is no right CVA tenderness, left CVA tenderness, guarding or rebound. Hernia: No hernia is present. Musculoskeletal: General: No swelling, tenderness, deformity or signs of injury. Normal range of motion. Cervical back: Normal range of motion and neck supple. No rigidity. Right lower leg: No edema. Left lower leg: No edema. Lymphadenopathy: Cervical: No cervical adenopathy. Skin: General: Skin is warm and dry. Capillary Refill: Capillary refill takes less than 2 seconds. Coloration: Skin is not jaundiced or pale. Findings: No bruising, erythema, lesion or rash. Neurological: General: No focal deficit present. Mental Status: She is alert and oriented to person, place, and time. Cranial Nerves: No cranial nerve deficit. Sensory: No sensory deficit. Motor: No weakness. Coordination: Coordination normal. Gait: Gait normal. Psychiatric: Mood and Affect: Mood normal. Behavior: Behavior normal. Thought Content: Thought content normal. Judgment: Judgment normal. Assessment and Plan ASSESSMENT/PLAN: 1. URI, acute - ICD9: 465.9, ICD10: J06.9 Acute onset yesterday - Discussed viral etiology and rationale for treatment. - Symptomatic treatment with prn analgesia - Supportive care with fluids and rest - The patient may also use OTC cough and cold meds as needed, warm salt water gargles, throat lozenges and/or OTC throat spray as needed, and nasal saline gtts and suction prn. - Follow up in 3-5 days if symptoms persist or sooner if worsening of symptoms - Work note provided - COVID & INFLUENZA A/B & RSV NAAT, ROUTINE Ashley Canales APRN.CORRECTIONAL SUBSTANCE ABUSE COUNSELOR documented in this encounter [facility] 09-02-2022 Miscellaneous Notes Patient notified and colposcopy scheduled. Latisha Vega RN Mychart result note message sent to patient to call office. Latisha Vega RN Left message for patient to call office. Latisha Vega RN ----- Message from Lindsay Sifuentes APRN.CORRECTIONAL SUBSTANCE ABUSE COUNSELOR sent at 09/01/2022 3:59 PM EDT ----- Please notify Alcie Horn - Pap HSIL, HPV 16 positive. Needs colposcopy with DM or RR. Colposcopy ordered and placed on problem list. Lindsay Sifuentes APRN.LINNEA documented in this encounter [facility] 08-25-2022 Note HNO ID: [id number] Author: Lindsay Sifuentes APRN.LINNEA Service: ? Author Type: Nurse Practitioner Type: Progress Notes Filed: 08/25/2022 5:46 PM Note Text: Mold Holder offered: Patient declines. Alice is a 31 year old who presents for an annual gynecologic exam with complaints, intermittent sharp pain to right side over ovary day prior to menses in May and July . Feels better if she sits still and resolves the first day of menses. No known history of ovarian cysts. Menses: cycles every 28-30 days and 5-6 days of flow. Contraception: tubal sterilization HPV vaccine: No Last Pap: 06/23/2020 normal HPV: N/A History of abnormal pap: No Last mammogram: never Sexually active: Yes History of STDS: trichomonas Patient concerns for STD exposure: Yes: has not been sexually active with in years. Does have another sexual partner. Pain with intercourse: No Postcoital bleeding: No 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: 07/25/2022, Having periods Age at Menarche: Age at First : Age at Menopause: Entry Level Sales Associate History Comments: Sexual Activity: Yes; Male Contraception: Tubal Ligation PAST MEDICAL HISTORY Diagnosis Date Antepartum anemia 06/15/2012 Anxiety disorder At risk for sexually transmitted disease due to partner with HIV Attention deficit disorder without mention of hyperactivity 11/07/2000 H/O seasonal allergies inverted nipple left Varicella without mention of complication 05/11/1993 PAST SURGICAL HISTORY Procedure Laterality Date ADENOIDECTOMY PRIMARY MYRINGOTOMY TUBAL LIGATION Bilateral 01/08/2021 salpingectomy - [facility] FAMILY HISTORY Problem Relation Age of Onset Diabetes Mother Diabetes Father No Known Problems Sister ADD/ADHD Brother No Known Problems Brother other (hanging accident) Brother No Known Problems Maternal Grandmother No Known Problems Maternal Grandfather No Known Problems Paternal Grandmother No Known Problems Paternal Grandfather No Known Problems Daughter No Known Problems Son Heart Other maternal AND paternal side other (hypoglycemia [Other]) Other maternal AND paternal side Cancer Other maternal AND paternal side Diabetes Other maternal AND paternal side other (glaucom [Other]) Other maternal AND paternal side other (depression [Other]) Other maternal AND paternal side SOCIAL HISTORY Social History Tobacco Use Smoking status: Some Days Types: Cigarettes Smokeless tobacco: Never Tobacco comments: Social smoker-1-2 times a month Vaping Use Vaping Use: Former Substance Use Topics Alcohol use: Yes Alcohol/week: 5.0 standard drinks of alcohol Types: 5 Glasses of Wine (5oz) per week Comment: occasional Drug use: Never REVIEW OF SYSTEMS Abdomen: see HPI. No nausea, vomiting, diarrhea, or constipation. No bloating, early satiety, indigestion, or increased flatulence. Bladder: No dysuria, gross hematuria, urinary frequency, urinary urgency, or incontinence. Breast: No breast lumps, nipple d/c, overlying skin changes, redness or skin retraction. Allergies and current medication updated:Yes EXAM: BP 120/78 Ht 5' 5 (1.65m) Wt 189 lb 9.6 oz (86.0kg) LMP 07/25/2022 BMI 31.55 kg/(m2). GENERAL: pleasant, female in no apparent distress HEENT: Normocephalic, atraumatic, mucus membranes moist, and no lesions NECK: Supple, full range of motion, no adenopathy, and thyroid normal DERMATOLOGY: Normal, without lesions, non-icteric, and non-hirsute BREAST: soft, non-tender, symmetric, no dominant mass, normal nipple-areolar complex, no lymphadenopathy, and no nipple discharge CHEST: Normal inspiratory effort ABDOMEN: soft, non-tender, and no masses PELVIC: external genitalia normal, normal Bartholin's glands, urethra, Vickery's glands, no vulvar lesions, no cervical lesions, good vaginal support, physiologic discharge present, normal appearing perineal body and perianal region BIMANUAL: uterus normal size, shape and consistency, no adnexal masses, and non-tender RECTOVAGINAL: deferred. NEURO: alert and oriented x3,exam grossly non-focal EXTREMITIES: normal ASSESSMENT/PLAN: 1) Health maintenance: Pap done with HPV. Nutrition, exercise and routine health maintenance exams reviewed. Smoking cessation: Benefits of smoking cessation reviewed. Patient encouraged to avoid smoking. HPV vaccine: 1st in series today 2. Pelvic pain - ICD9: [id number], ICD10: R10.2 - intermittent sharp pain to right side day prior to menses in May and July. No RLQ pain, fever or chills. Suspicious for ovarian cyst - Discussed physiology and cyclic nature of ovarian cysts, prevention of ovarian cysts with OCP and Depo-Provera and treatment with NSAIDs and heat. Discussed ovarian torsion risk, symptoms and need for immediate medical attention if they occur. - No since Ambreen menses. 3. Need for prophylactic (more content not included)... [facility] 08-25-2022 Instructions Lindsay Sifuentes APRN.LINNEA - 08/25/2022 2:28 PM EDT Gardasil Gardasil is a vaccine to protect against Human Papillomavirus (HPV) types 6, 11, 16, 18, 31,33,45, 52, 58. These viruses cause cancer and precancerous lesions on the cervix (opening between vagina and uterus), in the vagina and on the vulva (skin around the outside of the vagina) as well as genital warts. The vaccine cannot cause these diseases and cannot treat them if already present. Gardasil works best if given before contact with HPV. Most people are exposed to HPV soon after starting sexual activity. The vaccine is recommended between the ages of 9 and 45. Gardasil does not protect against all strains of HPV. Women who receive the vaccine still need to have regular pelvic exams and cervical cancer screening with the pap smear. You should ask your doctor if Gardasil is right for you if you have a weakened immune system, a bleeding disorder, plan to become soon or have a current illness causing fever. Gardasil is not recommended for women. You should be sure your doctor is aware of any allergies you have and all medications and herbal supplements you take. Gardasil is given to those ages 9-14 in 2 doses at 0 and 8 months. In ages 15-45, three injections are given at 0,2,6 months. Common side effects include pain, redness, itching and swelling at the injection site, nausea, fever, dizziness and fainting. Rare but potentially serious reactions have been reported. These include allergic reaction, swollen glands, joint and muscle pain, weakness and Guillain-Hennepin syndrome. documented in this encounter [facility] 08-25-2022 History of Presen t illness Narrative Mold Holder offered: Patient declinesMoni Jenkins is a 31 year old who presents for an annual gynecologic exam with complaints, intermittent sharp pain to right side over ovary day prior to menses in May and July . Feels better if she sits still and resolves the first day of menses. No known history of ovarian cysts. Menses: cycles every 28-30 days and 5-6 days of flow. Contraception: tubal sterilization HPV vaccine: No Last Pap: 06/23/2020 normal HPV: N/A History of abnormal pap: No Last mammogram: never Sexually active: Yes History of STDS: trichomonas Patient concerns for STD exposure: Yes: has not been sexually active with in years. Does have another sexual partner. Pain with intercourse: No Postcoital bleeding: No 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: 07/25/2022, Having periods Age at Menarche: Age at First : Age at Menopause: Entry Level Sales Associate History Comments: Sexual Activity: Yes; Male Contraception: Tubal Ligation PAST MEDICAL HISTORY Diagnosis Date Antepartum anemia 06/15/2012 Anxiety disorder At risk for sexually transmitted disease due to partner with HIV Attention deficit disorder without mention of hyperactivity 11/07/2000 H/O seasonal allergies inverted nipple left Varicella without mention of complication 05/11/1993 PAST SURGICAL HISTORY Procedure Laterality Date ADENOIDECTOMY PRIMARY <AGE 12 MYRINGOTOMY TUBAL LIGATION Bilateral 01/08/2021 salpingectomy - [facility] FAMILY HISTORY Problem Relation Age of Onset Diabetes Mother Diabetes Father No Known Problems Sister ADD/ADHD Brother No Known Problems Brother other (hanging accident) Brother No Known Problems Maternal Grandmother No Known Problems Maternal Grandfather No Known Problems Paternal Grandmother No Known Problems Paternal Grandfather No Known Problems Daughter No Known Problems Son Heart Other maternal & paternal side other (hypoglycemia [Other]) Other maternal & paternal side Cancer Other maternal & paternal side Diabetes Other maternal & paternal side other (glaucom [Other]) Other maternal & paternal side other (depression [Other]) Other maternal & paternal side SOCIAL HISTORY Social History Tobacco Use Smoking status: Some Days Types: Cigarettes Smokeless tobacco: Never Tobacco comments: Social smoker-1-2 times a month Vaping Use Vaping Use: Former Substance Use Topics Alcohol use: Yes Alcohol/week: 5.0 standard drinks of alcohol Types: 5 Glasses of Wine (5oz) per week Comment: occasional Drug use: Never REVIEW OF SYSTEMS Abdomen: see HPI. No nausea, vomiting, diarrhea, or constipation. No bloating, early satiety, indigestion, or increased flatulence. Bladder: No dysuria, gross hematuria, urinary frequency, urinary urgency, or incontinence. Breast: No breast lumps, nipple d/c, overlying skin changes, redness or skin retraction. Allergies and current medication updated:Yes EXAM: BP 120/78 Ht 5' 5 (1.65m) Wt 189 lb 9.6 oz (86.0kg) LMP 07/25/2022 BMI 31.55 kg/(m^2). GENERAL: pleasant, female in no apparent distress HEENT: Normocephalic, atraumatic, mucus membranes moist, and no lesions NECK: Supple, full range of motion, no adenopathy, and thyroid normal DERMATOLOGY: Normal, without lesions, non-icteric, and non-hirsute BREAST: soft, non-tender, symmetric, no dominant mass, normal nipple-areolar complex, no lymphadenopathy, and no nipple discharge CHEST: Normal inspiratory effort ABDOMEN: soft, non-tender, and no masses PELVIC: external genitalia normal, normal Bartholin's glands, urethra, Vickery's glands, no vulvar lesions, no cervical lesions, good vaginal support, physiologic discharge present, normal appearing perineal body and perianal region BIMANUAL: uterus normal size, shape and consistency, no adnexal masses, and non-tender RECTOVAGINAL: deferred. NEURO: alert and oriented x3,exam grossly non-focal EXTREMITIES: normal ASSESSMENT/PLAN: 1) Health maintenance: Pap done with HPV. Nutrition, exercise and routine health maintenance exams reviewed. Smoking cessation: Benefits of smoking cessation reviewed. Patient encouraged to avoid smoking. HPV vaccine: 1st in series today 2. Pelvic pain - ICD9: [id number], ICD10: R10.2 - intermittent sharp pain to right side day prior to menses in May and July. No RLQ pain, fever or chills. Suspicious for ovarian cyst - Discussed physiology and cyclic nature of ovarian cysts, prevention of ovarian cysts with OCP and Depo-Provera and treatment with NSAIDs and heat. Discussed ovarian torsion risk, symptoms and need for immediate medical attention if they occur. - No since July menses. 3. Need for prophylactic vaccination/inoculation against viral disease - ICD9: V04.89, ICD10: Z23 - THER/PROPH/DIAG INJ, SC/IM - HPV VACCINE, 9-VALENT (GARDASIL 9) - HPV VACCINE, 9-VALENT (GARDASIL 9) - HPV VACCINE, 9-VALENT (GARDASIL 9) 4) Contraception: tubal sterilization. 5) STD screening: Accepted STD check for Gonorrhea and Chlamydia. 6) Follow up one year or sooner as needed Lindsay Sifuentes APRN.CORRECTIONAL SUBSTANCE ABUSE COUNSELOR Patient identified by name and date of . Alice Horn is here for her HPV Gardasil vaccination, injection # one of the series. Patient ?No Gardasil injection was given without incident. See immunizations for details of immunizations administered today. VIS sheet provided: Yes Patient advised to follow up in 2 months from the 1st injection Provider Lindsay Sifuentes CNP was present in office at time of injection. Tala Erazo MA Patient waited 15 minutes after injection, no adverse reaction. Tala Erazo MA Electronically signed by Lindsay Sifuentes APRN.CORRECTIONAL SUBSTANCE ABUSE COUNSELOR at 08/25/2022 5:46 PM EDT documented in this encounter [facility] documented as of this encounter (statuses as of 10/21/2022) [facility]08-17-2021 History of Past illness Narrative* Problem Noted Date Diagnosed Date Resolved Date Request for sterilization 09/23/2020 Overview: 09/23/20 - Title 19 papers signed today - Cari Jacome MD Trichomoniasis 06/25/2020 11/14/2020 History of prior with IUGR 11/14/2020 History of anxiety 06/12/2020 Overview: Patient states she has a history of anxiety that was never diagnosed or treated. She denies ever having depression. TKRN Patient request for diagnostic testing 06/12/2020 06/17/2020 Overview: 06/09/2020atient desires nuchal ultrasound. Declines genetic carrier screening testing.TKRN Tobacco use during , antepartum 06/12/2020 11/14/2020 Overview: 06/12/2020t smokes 1 to 2 cigarettes a week. Discussed risks of smoking during . Advised pt to quit. Adrienne Warren RN Supervision of other high-ri sk (V23.89) 06/25/2013 06/17/2020 Overview: June 25, 2013 PNRA done. Late care. Venancio Miller MD Late care 06/21/2013 Overview: 06/12/2020 Patient states that she took a test on June 08 and was seen at the care center on June 09. She had an ultrasound there that she states showed that she was 21 weeks [address] Jacome and she ordered an ultrasound prior to her new OB appointment June 17.She states she has been under a lot of stress recently with her being ill. She states he has been in and out of the hospital since last April due to a HIV. She states she has a history of irregular menses. She states she has felt movement for the past 2 days. TKRN TKRN Short interval between pregn ancies complicating , antepartum 06/21/201306/25 Overview: 06/21/2013Ary delivered her previous child August 20, 2012. TKRN Antepartum anemia 06/15/2012 06/21/2013 Supervision of normal first 04/26/2012 06/21/2013 with care elsewhere 04/18/2012 06/21/2013 Overview: 04/18/2012Ary is transferring care from [place]. She hand- carries her records with her today. She is 20w2d By dates. She states baby has been active. documented as of this encounter (statuses as of 11/25/2022) [facility]08-17-[facility]21 History of Past illness Narrative* Problem Noted Date Diagnosed Date Resolved Date Request for sterilization 09/23/2020 Overview: 09/23/20 - Title 19 papers signed today - Cari Jacome MD Trichomoniasis 06/25/2020 11/14/2020 History of prior with IUGR 1 11/14/2020 History of anxiety 06/12/2020 Overview: Patient states she has a history of anxiety that was never diagnosed or treated. She denies ever having depression. TKRN Patient request for diagnostic testing 06/12/2020 06/17/2020 Overview: 06/09/2020atient desires nuchal ultrasound. Declines genetic carrier screening testing.TKRN Tobacco use during , antepartum 06/12/2020 11/14/2020 Overview: 06/12/2020t smokes 1 to 2 cigarettes a week. Discussed risks of smoking during . Advised pt to quit. Adrienne Warren RN Supervision of other high-ri (V23.89) 06/25/2013 06/17/2020 Overview: June 25, 2013 PNRA done. Late care. Venancio Miller MD Late care 06/21/2013 Overview: 06/12/2020 Patient states that she took a test on June 08 and was seen at the care center on June 09. She had an ultrasound there that she states showed that she was 21 weeks [address] Jacome and she ordered an ultrasound prior to her new OB appointment June 17.She states she has been under a lot of stress recently with her being ill. She states he has been in and out of the hospital since last April due to a HIV. She states she has a history of irregular menses. She states she has felt movement for the past 2 days. TKRN TKRN Short interval between pregn ancies complicating , antepartum 06/21/201306/25 Overview: 06/21/2013Ary delivered her previous child August 20, 2012. TKRN Antepartum anemia 06/15/2012 06/21/2013 Supervision of normal first 04/26/2012 06/21/2013 with care elsewhere 04/18/2012 06/21/2013 Overview: 04/18/2012Ary is transferring care from [place]. She hand- carries her records with her today. She is 20w2d By dates. She states baby has been active. documented as of this encounter (statuses as of 12/11/2022) [facility]08-[facility] History of Past illness Narrative* Problem Noted Date Diagnosed Date Resolved Date Request for sterilization 09/23/2020 Overview: 09/23/20 - Title 19 papers signed today - Cari Jacome MD Trichomoniasis 06/25/2020 11/14/2020 History of prior with IUGR 11/14/2020 History of anxiety 06/12/2020 Overview: Patient states she has a history of anxiety that was never diagnosed or treated. She denies ever having depression. TKRN Patient request for diagnostic testing 06/12/2020 06/17/2020 Overview: 06/09/2020atient desires nuchal ultrasound. Declines genetic carrier screening testing.TKRN Tobacco use during , antepartum 06/12/2020 11/14/2020 Overview: 06/12/2020t smokes 1 to 2 cigarettes a week. Discussed risks of smoking during . Advised pt to quit. Adrienne Warren RN Supervision of other high-ri sk (V23.89) 06/25/2013 06/17/2020 Overview: June 25, 2013 PNRA done. Late care. Venancio Miller MD Late care 06/21/2013 Overview: 06/12/2020 Patient states that she took a test on June 08 and was seen at the care center on June 09. She had an ultrasound there that she states showed that she was 21 weeks [address] Jacome and she ordered an ultrasound prior to her new OB appointment June 17.She states she has been under a lot of stress recently with her being ill. She states he has been in and out of the hospital since last April due to a HIV. She states she has a history of irregular menses. She states she has felt movement for the past 2 days. TKRN TKRN Short interval between pregn ancies complicating , antepartum 06/21/201306/25 Overview: 06/21/2013She delivered her previous child August 20, 2012. TKRN Antepartum anemia 06/15/2012 06/21/2013 Supervision of normal first 04/26/2012 06/21/2013 with care elsewhere 04/18/2012 06/21/2013 Overview: 04/18/2012Ary is transferring care from [place]. She hand- carries her records with her today. She is 20w2d By dates. She states baby has been active. documented as of this encounter (statuses as of 01/10/2023) [facility]08-17-[facility]21 History of Past illness Narrative* Problem Noted Date Diagnosed Date Resolved Date Request for sterilization 09/23/2020 Overview: 09/23/20 - Title 19 papers signed today - Cari Jacome MD Trichomoniasis 06/25/2020 11/14/2020 History of prior with IUGR 11/14/2020 History of anxiety 06/12/2020 Overview: Patient states she has a history of anxiety that was never diagnosed or treated. She denies ever having depression. TKRN Patient request for diagnostic testing 06/12/2020 06/17/2020 Overview: 06/09/2020atient desires nuchal ultrasound. Declines genetic carrier screening testing.TKRN Tobacco use during , antepartum 06/12/2020 11/14/2020 Overview: 1Pt smokes 1 to 2 cigarettes a week. Discussed risks of smoking during . Advised pt to quit. Adrienne Warren RN Supervision of other high-ri sk (V23.89) 06/25/2013 06/17/2020 Overview: June 25, 2013 PNRA done. Late care. Venancio Miller MD Late care 06/21/2013 Overview: 06/12/2020 Patient states that she took a test on June 08 and was seen at the care center on June 09. She had an ultrasound there that she states showed that she was 21 weeks [address] Jacome and she ordered an ultrasound prior to her new OB appointment June 17.She states she has been under a lot of stress recently with her being ill. She states he has been in and out of the hospital since last April due to a HIV. She states she has a history of irregular menses. She states she has felt movement for the past 2 days. TKRN TKRN Short interval between pregn ancies complicating , antepartum 06/21/201306/25 Overview: 06/21/2013Ary delivered her previous child August 20, 2012. TKRN Antepartum anemia 06/15/2012 06/21/2013 Supervision of normal first 04/26/2012 06/21/2013 with care elsewhere 04/18/2012 06/21/2013 Overview: 04/18/2012Ary is transferring care from [place]. She hand- carries her records with her today. She is 20w2d By dates. She states baby has been active. documented as of this encounter (statuses as of 03/23/2023) [facility]08-[facility] History of Past illness Narrative* Problem Noted Date Diagnosed Date Resolved Date Request for sterilization 09/23/2020 Overview: 09/23/20 - Title 19 papers signed today - Cari Jacome MD Trichomoniasis 06/25/2020 11/14/2020 History of prior with IUGR 1 11/14/2020 History of anxiety 06/12/2020 Overview: Patient states she has a history of anxiety that was never diagnosed or treated. She denies ever having depression. TKRN Patient request for diagnostic testing 06/12/2020 06/17/2020 Overview: 06/09/2020atient desires nuchal ultrasound. Declines genetic carrier screening testing.TKRN Tobacco use during , antepartum 06/12/2020 11/14/2020 Overview: 06/12/2020t smokes 1 to 2 cigarettes a week. Discussed risks of smoking during . Advised pt to quit. Adrienne Warren RN Supervision of other high-ri sk (V23.89) 06/25/2013 06/17/2020 Overview: June 25, 2013 PNRA done. Late care. Venancio Miller MD Late care 06/21/2013 Overview: 06/12/2020 Patient states that she took a test on June 08 and was seen at the care center on June 09. She had an ultrasound there that she states showed that she was 21 weeks [address] Jacome and she ordered an ultrasound prior to her new OB appointment June 17.She states she has been under a lot of stress recently with her being ill. She states he has been in and out of the hospital since last April due to a HIV. She states she has a history of irregular menses. She states she has felt movement for the past 2 days. TKRN TKRN Short interval between pregn ancies complicating , antepartum 06/21/201306/25 Overview: 06/21/2013Ary delivered her previous child August 20, 2012. TKRN Antepartum anemia 06/15/2012 06/21/2013 Supervision of normal first 04/26/2012 06/21/2013 with care elsewhere 04/18/2012 06/21/2013 Overview: 04/18/2012Ary is transferring care from [place]. She hand- carries her records with her today. She is 20w2d By dates. She states baby has been active. documented as of this encounter (statuses as of 03/30/2023) [facility] History of Past illness Narrative* Problem Noted Date Diagnosed Date Resolved Date Trichomoniasis 06/25/2020 11/14/2020 History of prior with IUGR 1 11/14/2020 History of anxiety 06/12/2020 Overview: Patient states she has a history of anxiety that was never diagnosed or treated. She denies ever having depression. TKRN Patient request for diagnostic testing 06/12/2020 06/17/2020 Overview: 06/09/2020atient desires nuchal ultrasound. Declines genetic carrier screening testing.TKRN Tobacco use during , antepartum 06/12/2020 11/14/2020 Overview: 06/12/2020t smokes 1 to 2 cigarettes a week. Discussed risks of smoking during . Advised pt to quit. Adrienne Warren RN Supervision of other high-ri sk (V23.89) 06/25/2013 06/17/2020 Overview: June 25, 2013 PNRA done. Late care. Venancio Miller MD Late care 06/21/2013 Overview: 06/12/2020 Patient states that she took a test on June 08 and was seen at the care center on June 09. She had an ultrasound there that she states showed that she was 21 weeks [address] Jacome and she ordered an ultrasound prior to her new OB appointment June 17.She states she has been under a lot of stress recently with her being ill. She states he has been in and out of the hospital since last April due to a HIV. She states she has a history of irregular menses. She states she has felt movement for the past 2 days. TKRN TKRN Short interval between pregn ancies complicating , antepartum 06/21/201306/25 Overview: 06/21/2013She delivered her previous child August 20, 2012. TKRN Antepartum anemia 06/15/2012 06/21/2013 Supervision of normal first 04/26/2012 06/21/2013 with care elsewhere 04/18/2012 06/21/2013 Overview: 04/18/2012Ary is transferring care from [place]. She hand- carries her records with her today. She is 20w2d By dates. She states baby has been active. documented as of this encounter (statuses as of 08/26/2022) [facility] History of Past illness Narrative* Problem Noted Date Diagnosed Date Resolved Date Trichomoniasis 06/25/2020 11/14/2020 History of prior with IUGR 11/14/2020 History of anxiety 06/12/2020 Overview: Patient states she has a history of anxiety that was never diagnosed or treated. She denies ever having depression. TKRN Patient request for diagnostic testing 06/12/2020 06/17/2020 Overview: 06/09/2020atient desires nuchal ultrasound. Declines genetic carrier screening testing.TKRN Tobacco use during , antepartum 06/12/2020 11/14/2020 Overview: 06/12/2020t smokes 1 to 2 cigarettes a week. Discussed risks of smoking during . Advised pt to quit. Adrienne Warren RN Supervision of other high-ri (V23.89) 06/25/2013 06/17/2020 Overview: June 25, 2013 PNRA done. Late care. Venancio Miller MD Late care 06/21/2013 Overview: 06/12/2020 Patient states that she took a test on June 08 and was seen at the care center on June 09. She had an ultrasound there that she states showed that she was 21 weeks [address] Jacome and she ordered an ultrasound prior to her new OB appointment June 17.She states she has been under a lot of stress recently with her being ill. She states he has been in and out of the hospital since last April due to a HIV. She states she has a history of irregular menses. She states she has felt movement for the past 2 days. TKRN TKRN Short interval between pregn ancies complicating , antepartum 06/21/201306/25 Overview: 06/21/2013Ary delivered her previous child August 20, 2012. TKRN Antepartum anemia 06/15/2012 06/21/2013 Supervision of normal first 04/26/2012 06/21/2013 with care elsewhere 04/18/2012 06/21/2013 Overview: 04/18/2012Ary is transferring care from [place]. She hand- carries her records with her today. She is 20w2d By dates. She states baby has been active. documented as of this encounter (statuses as of 09/02/2022) [facility] History of Past illness Narrative* Problem Noted Date Diagnosed Date Resolved Date Trichomoniasis 06/25/2020 11/14/2020 History of prior with IUGR 1 11/14/2020 History of anxiety 06/12/2020 Overview: Patient states she has a history of anxiety that was never diagnosed or treated. She denies ever having depression. TKRN Patient request for diagnostic testing 06/12/2020 06/17/2020 Overview: 06/09/2020atient desires nuchal ultrasound. Declines genetic carrier screening testing.TKRN Tobacco use during , antepartum 06/12/2020 11/14/2020 Overview: 06/12/2020t smokes 1 to 2 cigarettes a week. Discussed risks of smoking during . Advised pt to quit. Adrienne Warren RN Supervision of other high-ri sk (V23.89) 06/25/2013 06/17/2020 Overview: June 25, 2013 PNRA done. Late care. Venancio Miller MD Late care 06/21/2013 Overview: 06/12/2020 Patient states that she took a test on June 08 and was seen at the care center on June 09. She had an ultrasound there that she states showed that she was 21 weeks [address] Jacome and she ordered an ultrasound prior to her new OB appointment June 17.She states she has been under a lot of stress recently with her being ill. She states he has been in and out of the hospital since last April due to a HIV. She states she has a history of irregular menses. She states she has felt movement for the past 2 days. TKRN TKRN Short interval between pregn ancies complicating , antepartum 06/21/201306/25 Overview: 06/21/2013Ary delivered her previous child August 20, 2012. TKRN Antepartum anemia 06/15/2012 06/21/2013 Supervision of normal first 04/26/2012 06/21/2013 with care elsewhere 04/18/2012 06/21/2013 Overview: 04/18/2012Ary is transferring care from [place]. She hand- carries her records with her today. She is 20w2d By dates. She states baby has been active. documented as of this encounter (statuses as of 10/14/2022) [facility] Diagnosis Encounter for gynecological examination with abnormal finding- Primary Routine gynecological examination Pelvic pain Screening for cervical cancer Screening for malignant neoplasm of the cervix Encounter for screening for human papillomavirus (HPV) Special screening examination for human papillomavirus (HPV) Need for prophylactic vaccination/inoculation against viral disease Need for prophylactic vaccination and inoculation against other viral diseases Screen for STD (sexually transmitted disease) Screening examination for venereal disease [facility] Diagnosis URI, acute- Primary Acute upper respiratory infections of unspecified site [facility] Diagnosis HSIL (high grade squamous intraepithelial lesion) on Pap smear of cervix- Primary Papanicolaou smear of cervix with high grade squamous intraepithelial lesion (HGSIL) Cervical high risk HPV (human papillomavirus) test positive Cervical high risk human papillomavirus (HPV) DNA test positive [facility] Diagnosis High grade squamous intraepithelial cervical dysplasia- Primary [facility] [place] [facility]* Diagnosis Pain- Primary Generalized pain [facility] (n[facility] Outpatient Procedure (Routine) - Pending Review Specialty Diagnoses / Procedures Referred By Zulma t Referred To Contact [facility] Diagnoses HSIL (high grade squamous intraepithelial lesion) on Pap smear of cervix Cervical high risk HPV (human papillomavirus) test positive Procedures COLPOSCOPY COLPOSCOPY CERVIX BX CERVIX & ENDOCRV CURRETAGE Venancio Miller MD [address] [place] [address] [facility] [address] [place] [address] Referral ID Status Reason Start Date Expiration Date Visits Requested Visits Authorized [id number] Pending Review Auto-Generat ed Referral 10/20/2022 10/20/2023 1 1 [facility] Concerns Infection Onset Date Last Indicated Resolved Time COVID-19 Rule-Out 10/13/2022 10/13/2022 Reason for Referral Specialty Diagnoses / Procedures Referred By Zulma diaz Referred To Contact Podiatry Diagnoses Pain Procedures CONSULT TO PODIATRY OFFICE/OUTPATIENT [facility] HIGH MDM 60 MINUTES Chelsie Jacome APRN.CORRECTIONAL SUBSTANCE ABUSE COUNSELOR [address] [place] [address] Referral ID Status Reason Start Date Expiration Date Visits Requested Visits Authorized [id number] Authorized PCP Requested Referral 03/30/2023 03/29/2024 1 1 Specialty Diagnoses / Procedures Referred By Zulma t Referred To Contact XR IMAGING Diagnoses Pain Procedures XR FOOT GENERAL 3V AP/LAT/OBL RIGHT RADEX FOOT COMPLETE MINIMUM 3 VIEWS Chelsie Jacome APRN.CORRECTIONAL SUBSTANCE ABUSE COUNSELOR [address] [place] [address] [place] [address] Referral ID Status Reason Start Date Expiration Date V isits Requested Visits Authorized [id number] Closed Auto-Generate d Referral 03/30/2023 04/28/2024 1 1 Summary Purpose Family History No Family History Records Found Advance Directives No Advanced Directives Records Found Additional Source Comments Source Comments (unrecognize d section and content) In the event this informatio n is protected by the Federal Confidentiality of Alcohol and Drug Abuse Patient Records regulations: The Federal rules restrict any use of the information to criminally investigate or prosecute any alcohol or drug abuse patient.[facility] the event this information is protected by the Federal Confidentiality of Alcohol and Drug Abuse Patient Records regulations: The Federal rules restrict any use of the information to criminally investigate or prosecute any alcohol or drug abuse patient.[facility] the event this information is protected by the Federal Confidentiality of Alcohol and Drug Abuse Patient Records regulations: The Federal rules restrict any use of the information to criminally investigate or prosecute any alcohol or drug abuse patient.[facility] the event this information is protected by the Federal Confidentiality of Alcohol and Drug Abuse Patient Records regulations: The Federal rules restrict any use of the information to criminally investigate or prosecute any alcohol or drug abuse patient.[facility] the event this information is protected by the Federal Confidentiality of Alcohol and Drug Abuse Patient Records regulations: The Federal rules restrict any use of the information to criminally investigate or prosecute any alcohol or drug abuse patient.[facility] the event this information is protected by the Federal Confidentiality of Alcohol and Drug Abuse Patient Records regulations: The Federal rules restrict any use of the information to criminally investigate or prosecute any alcohol or drug abuse patient.[facility] the event this information is protected by the Federal Confidentiality of Alcohol and Drug Abuse Patient Records regulations: The Federal rules restrict any use of the information to criminally investigate or prosecute any alcohol or drug abuse patient.[facility] the event this information is protected by the Federal Confidentiality of Alcohol and Drug Abuse Patient Records regulations: The Federal rules restrict any use of the information to criminally investigate or prosecute any alcohol or drug abuse patient.[facility] the event this information is protected by the Federal Confidentiality of Alcohol and Drug Abuse Patient Records regulations: The Federal rules restrict any use of the information to criminally investigate or prosecute any alcohol or drug abuse patient.[facility] Reason for Visit (unrecogniz ed section and content) Reason Comments Abnormal Pap Reason Comments Head Congestion Loss of taste, ROCK x 1 day Reason Comments Colposcopy Specialty Diagnoses / Procedures Referred By Zulma t Referred To Contact [facility] Diagnoses Papanicolaou smear of cervix with high grade squamous intraepithelial lesion (HGSIL) Cervical high risk HPV (human papillomavirus) test positive Procedures COLPOSCOPY COLPOSCOPY CERVIX BX CERVIX & ENDOCRV Lindsay Henson APRN.CORRECTIONAL SUBSTANCE ABUSE COUNSELOR [address] [place] [address] [facility] [address] [place] [address] Referral ID Status Reason Start Date Expiration Date V isits Requested Visits Authorized [id number] Closed Auto-Generate d Referral 09/01/2022 09/01/2023 1 1 Reason Comments Discussion Reason Comments Pre-Op Visit Reason Comments right foot pain X several months-can not recall an injury INFORMATION SOURCE (unrecogn ized section and content) FOR RECORDS PERTAINING TO PATIENTS WHO ARE OR HAVE BEEN ENROLLED IN A CHEMICAL DEPENDENCY/SUBSTANCEABUSE PROGRAM, SOME INFORMATION MAY BE OMITTED. This clinical summary was aggregated from multiple sources. Caution should be exercised in using it in the provision of clinical care. This summary normalizes information from multiple sources, and as a consequence, information in this document may materially change the coding, format and clinical context of patient data. In addition, data may be omitted in some cases. CLINICAL DECISIONS SHOULD BE BASED ON THE PRIMARY CLINICAL RECORDS. [facility]. provides no warranty or guarantee of the accuracy or completeness of information in this document.
[2023-04-07] MEDS: Lidocaine 1%/Epi 1:200 (30ml) 30 ML AMPUL (11:39)
[2023-04-07] MEDS: FERRIC SUBSULFATE 8 GM SOLN (11:50)
--- NOTE | 2023-04-07 12:03 | PCM.OPRPT ---
Problems Associated Problem List Diagnoses (1) High grade squamous intraepithelial cervical dysplasia: Report of Operation Date of Procedure: 04/07/23 Pre-Operative Diagnosis: High-grade cervical dysplasia Post-Operative Diagnosis: Same Surgery/Procedure Performed:: LEEP of the cervix with endocervical curettage Description of Surgical Findings:: Grossly normal cervix and vagina and vulva. Surgeon: Susan Vo shear scrapman: None Type of Anesthesia: MAC/Supplemental/Local Anesthesiologist: Neeta Plascencia Special Medications: none Specimen's removed: Anterior cervix, posterior cervix and endocervical curettings Drains: None Estimated Blood Loss (mL): 10 Fluids Replaced: 700 Description of Procedure: The patient was taken to the operating room where she was prepped and draped in a dorsal lithotomy position. The LEEP speculum was placed in the vagina. A paracervical block was performed with 1% Xylocaine with 1-100,000 epinephrine solution. The ectocervix was amputated with the 8 mm loop in 2 segments anterior and posterior. An endocervical curettage was then performed. The specimens were handed off and labeled and sent to pathology. Hemostasis of the cervix was obtained with ball cautery. Some Monsel solution was placed over the cauterized cervix. Hemostasis was assured. The instruments were removed from the vagina. A vaginal sweep was completed by me. Sponge and needle counts were correct. Grafts/Implants Used: None Procedure Start Time: 11:39 Procedure Stop Time: 11:52 Complications None Admit VTE Documentation VTE Present on Admission: No VTE Mechan Device Prophylaxis: SCD's VTE Pharm Prophylaxis ordered?: No Reason prophylaxis not ordered:: Procedure Not Indicated
--- NOTE | 2023-04-07 12:06 | DCINST_ITS ---
Discharge Instructions Diet Discharge Diet: No restrictions Activity May resume sexual activity in: 2 weeks Lifting Restrictions: none Dressing / Incision Call your doctor if your incision/area has: Sudden Increased Bleeding and Foul Smelling Discharge Call your doctor if you observe: Fever of 101 or Higher and Using more than 1 pad per hour (for 2 hrs in a row) Follow Up Care Please Follow Up With: Susan Vo MD When: As scheduled or as needed. Call [phone] or send a [employer] message as needed with questions or concerns Test Results: Test results from this visit will be discussed in further detail at your follow- up appointment, if applicable. Discharge Plan Admission Primary Reason for Your Visit: LEEP of the cervix Attending Provider: Susan Vo Primary Care Provider: Care PhysicianAfia Primary Discharge Orders/Prescriptions Prescriptions: No Action acetaminophen [Tylenol] 325 mg capsule 650 mg PO Q4H PRN (Reason: pain) naproxen sodium [Aleve] 220 mg tablet 220 mg PO BID PRN (Reason: pain) Referrals / Follow Up: Care Physician,Afia Primary [Primary Care Provider] - Disposition Disposition (needs filled in before D/C Order can be placed): Home, Self Care
== END 2023-04-07 13:01 | disposition home or self-care (01) ==
LOC: SDC 09:48 → AC 09:50
PROVIDERS: Referring Provider Obstetrics & Gynecology; Visit Provider Obstetrics & Gynecology
PROC: 0UBC7ZZ Excision of Cervix, Via Natural or Artificial Opening (ICD-10-PCS; CPT 57522; principal; 2023-04-07 10:55)
DX: N71.1 Chronic inflammatory disease of uterus (principal); F17.210 Nicotine dependence, cigarettes, uncomplicated; F41.9 Anxiety disorder, unspecified; R87.613 High grade squamous intraepithelial lesion on cytologic smear of cervix (HGSIL); Z98.51 Tubal ligation status
CPT/HCPCS: 57522; 00940; 88305; 88307; J7120; J2405